=== PATIENT | male | born 1940 | race Caucasian/White ===

== ENCOUNTER 2017-06-07 01:24 | Inpatient (IN) | payer MEDICARE, OTHER ==
[2017-06-07] MEDS ORDERED: Sodium Chloride 0.9% 10 ML Syringe FLUSH PRN (01:44)
[2017-06-07] MEDS ORDERED: Furosemide 40 MG/4 ML VIAL IVPUSH ONE ×2 (01:44→10:00)
--- NOTE | 2017-06-07 02:26 | EDM.PDOC ---
ED HPI GENERAL MEDICAL PROBLEM - General Chief Complaint: Lower Extremity Injury/Pain Stated Complaint: [facility] Time Seen by Provider: 06/07/17 01:32 Source of Information: Reports: Patient, EMS, RN Notes Reviewed - History of Present Illness INITIAL COMMENTS - FREE TEXT/NARRATIVE: 76-year-old male has been brought by ambulance due to symptoms of worsening bilateral leg swelling and edema, unable to get out of the chair and walk for short time ago. He states that his legs have been swelling progressively over the last several weeks and especially the last several days. He states he has gained about 30 pounds of weight over the past 6 months. He has had worsening difficulty walking the past several days and now early this morning unable to get up out of a chair. Dates his right knee does give him a lot of pain. He states he has degenerative arthritis of the knee. He does have history of left knee replacement many years ago. No recent fall or injury. He does get short of breath with walking but otherwise not short of breath. He also became aware earlier this past day that he had swelling of his scrotum. He has had no difficulty voiding. He states he is been taking his medications as usual and as prescribed. Right Knee Pain Score (Numeric/FACES): 5 - Related Data Allergies Allergy/AdvReac Type Severity Reaction Status Date / Time No Known Allergies Allergy Verified 06/07/17 01:28 Home Meds: Home Meds Allopurinol [Zyloprim] 300 mg PO DAILY 06/07/17 [History] Apixaban [Eliquis] 2.5 mg PO BID 06/07/17 [History] Arformoterol [Brovana] 1 puff INH BID 06/07/17 [History] Diltiazem HCl [Diltiazem 24Hr ER] 240 mg PO DAILY 06/07/17 [History] Furosemide [Lasix] 40 mg PO BEDTIME 06/07/17 [History] Furosemide [Lasix] 80 mg PO DAILY 06/07/17 [History] Lisinopril 2.5 mg PO DAILY 06/07/17 [History] Roflumilast [Daliresp] 500 mcg PO DAILY 06/07/17 [History] Tiotropium [Spiriva] 18 mcg INH BID 06/07/17 [History] acetaZOLAMIDE [Acetazolamide] 500 mg PO ASDIRECTED 06/07/17 [History] atorvaSTATin Calcium [Atorvastatin Calcium] 20 mg PO DAILY 06/07/17 [History] Past Medical History HEENT History: Reports: Impaired Vision, Other (See Below) Other HEENT History: hard hearing Cardiovascular History: Reports: Afib, Heart Failure, High Cholesterol, Hypertension Respiratory History: Reports: COPD Psychiatric History: Reports: Depression Endocrine/Metabolic History: Reports: Diabetes, Type II - Past Surgical History Musculoskeletal Surgical History: Reports: Knee Replacement Social & Family History - Tobacco Use Smoking Status *Q: Former Smoker Used Tobacco, but Quit: Yes Month/Year Tobacco Last Used: 1985 Second Hand Smoke Exposure: No - Alcohol Use Days Per Week of Alcohol Use: 0 Number of Drinks Per Day: 0 Total Drinks Per Week: 0 - Recreational Drug Use Recreational Drug Use: No Drug Use in Last 12 Months: No Recreational Drug Type: Reports: Fentanyl Review of Systems - Review of Systems Review Of Systems: See Below Constitutional: Reports: Weakness. Denies: Fever Eyes: Reports: No Symptoms (Generalized) Mouth/Throat: Reports: No Symptoms Respiratory: Reports: Shortness of Breath (With walking) Cardiovascular: Denies: Chest Pain GI/Abdominal: Denies: Abdominal Pain, Nausea, Vomiting Musculoskeletal: Reports: Leg Pain (Bilateral lower leg), Joint Pain (Right knee ) Skin: Reports: Rash (Chronic distal lower legs), Erythema (Chronic erythema bilateral distal lower legs) Neurological: Reports: Difficulty Walking (Worsening difficulty walking this past week). Denies: Trouble Speaking, Change in Speech ED EXAM, GENERAL - Physical Exam Exam: See Below General Appearance: Alert, No Apparent Distress Throat/Mouth: Normal Inspection, Normal Oropharynx Head: Atraumatic Neck: Supple Respiratory/Chest: No Respiratory Distress, Lungs Clear. No: Rales, Rhonchi, Wheezing Cardiovascular: Systolic Murmur, Irregularly Irregular GI/Abdominal: Non-Tender, Other (Obese) (Male) Exam: Scrotal Swelling (Scrotal markedly swollen, nontender) Extremities: Pedal Edema, Leg Pain (Severe bilateral there is tenderness of his legs anteriorly and posteriorly bilateral), Redness (There is some erythema of distal legs bilateral and also other discoloration compatible with stasis dermatitis), Other (He does have some tenderness of the medial and lower anterior right knee, knee not warm or erythematous) Skin Exam: Warm, Dry EKG INTERPRETATION EKG Date: 06/07/17 Rhythm: A-Fib [place]: Normal P-Wave: Absent QRS: Other (very mild conduction delay) ST-T: Normal Course - Vital Signs Last Recorded V/S: Last Vital Signs Temp 97.6 F 06/07/17 01:25 Pulse 87 06/07/17 01:25 Resp 17 06/07/17 01:25 BP 130/56 L 06/07/17 01:25 Pulse Ox 95 06/07/17 01:25 - Orders/Labs/Meds Orders: Active Orders 24 hr Category Date Time Status Admission Status [Patient Status] [ADT] Routine ADT 06/07/17 03:22 Active EKG 12 Lead [EKG Documentation Completion] [RC] STAT Care 06/07/17 01:44 Active Valdovinos Catheter Insertion [Insert Urinary Catheter] [OM. Care 06/07/17 03:15 Ordered PC] Q24H Peripheral IV Care [RC] . DIRECTED Care 06/07/17 01:45 Active Urinary Catheter Assessment [RC] ASDIRECTED Care 06/07/17 03:13 Active Chest 1V Frontal [CR] Stat Exams 06/07/17 01:55 Taken Sodium Chloride 0.9% [Saline Flush] Med 06/07/17 01:44 Active 10 ml FLUSH ASDIRECTED PRN Peripheral IV Insertion Adult [OM.PC] Stat Oth 06/07/17 01:44 Ordered Medication Orders Sodium Chloride (Saline Flush) 10 ml FLUSH ASDIRECTED PRN PRN Reason: Keep Vein Open Last Admin: 06/07/17 01:52 Dose: 10 ml Labs: Laboratory Tests 06/07/17 06/07/17 Range/Units 01:50 01:50 WBC 7.32 (4.23-9.07) K/mm3 RBC 3.71 L (4.63-6.08) M/mm3 Hgb 11.4 L (13.7-17.5) gm/L Hct 36.0 L (40.1-51.0) % MCV 97.0 H (79.0-92.2) fl MCH 30.7 (25.7-32.2) pg MCHC 31.7 L (32.2-35.5) g/dl RDW Std Deviation 54.5 H (35.1-43.9) fL Plt Count 218 (163-337) K/mm3 MPV 9.0 L (9.4-12.3) fl Neut % (Auto) 86.9 H (34.0-67.9) % Lymph % (Auto) 7.2 L (21.8-53.1) % [place] % (Auto) 5.2 L (5.3-12.2) % Eos % (Auto) 0.5 L (0.8-7.0) Baso % (Auto) 0.1 (0.1-1.2) % Neut # (Auto) 6.35 H (1.78-5.38) K/mm3 Lymph # (Auto) 0.53 L (1.32-3.57) K/mm3 [place] # (Auto) 0.38 (0.30-0.82) K/mm3 Eos # (Auto) 0.04 (0.04-0.54) K/mm3 Baso # (Auto) 0.01 (0.01-0.08) K/mm3 Manual Slide Review Abnormal smear Sodium 141 (136-145) mEq/L Potassium 4.4 (3.5-5.1) mEq/L Chloride 106 (98-107) mEq/L Carbon Dioxide 23 (21-32) mEq/L Anion Gap 16.4 H (5-15) BUN 83 H (7-18) mg/dL Creatinine 2.1 H (0.7-1.3) mg/dL Est Cr Clr Drug Dosing 30.90 mL/min Estimated GFR (MDRD) 31 (>60) mL/min BUN/Creatinine Ratio 39.5 H (14-18) Glucose 109 (83-115) mg/dL Calcium 9.0 (8.5-10.1) mg/dL Total Bilirubin 0.3 (0.2-1.0) mg/dL AST 17 (15-37) U/L ALT 29 (16-63) U/L Alkaline Phosphatase 127 H (46-116) U/L Troponin I < 0.017 (0.00-0.056) ng/mL Total Protein 6.9 (6.4-8.2) g/dl Albumin 3.7 (3.4-5.0) g/dl Globulin 3.2 gm/dL Albumin/Globulin Ratio 1.2 (1-2) Meds: Medications Generic Name Dose Route Start Last Admin Trade Name Freq PRN Reason Stop Dose Admin Sodium Chloride 10 ml 06/07/17 01:44 06/07/17 01:52 Saline Flush FLUSH 10 ml ASDIRECTED PRN Administration Keep Vein Open Discontinued Medications Generic Name Dose Route Start Last Admin Trade Name Nader PRN Reason Stop Dose Admin Furosemide 80 mg 06/07/17 01:44 06/07/17 01:51 Lasix IVPUSH 06/07/17 01:45 80 mg NOW ONE Administration Hydromorphone HCl 0.5 mg 06/07/17 03:25 06/07/17 03:29 Dilaudid IVPUSH 06/07/17 03:26 0.5 mg ONETIME ONE Administration - Re-Assessments/Exams Free Text/Narrative Re-Assessment/Exam: 06/07/17 03:15. We did give lasix 80 mg IV on arrival just over an hour ago. He is having some difficuty voiding. Too weak to safely stand. Bladder scan now shows about 1 liter of urine in his bladder. Will have RN place a valdovinos cath. Will also help to moniter urine output. He states he has gained 30 lbs over the past 6 to 9 months. Suspect most of that is fluid. He cannot go home. Have admitted for further eval and treatment. Departure - Departure Time of Disposition: 03:10 Disposition: Admitted As Inpatient 66 Condition: Serious Clinical Impression: Difficulty walking Congestive heart failure (CHF) Qualifiers: Heart failure type: right-sided Heart failure chronicity: acute on chronic Qualified Code(s): I50.813 - Acute on chronic right heart failure Atrial fibrillation Qualifiers: Atrial fibrillation type: chronic Qualified Code(s): I48.2 - Chronic atrial fibrillation Osteoarthritis of right knee Qualifiers: Osteoarthritis type: unspecified Qualified Code(s): M17.11 - Unilateral primary osteoarthritis, right knee - Discharge Information ED Communication - Discussed Case With (1) Discussed Case With (1): Admitting Provider (Dr Mcbride, decision to admit at about 0310) - My Orders Last 24 Hours: My Active Orders 06/07/17 01:44 EKG 12 Lead [EKG Documentation Completion] [RC] STAT Sodium Chloride 0.9% [Saline Flush] 10 ml FLUSH ASDIRECTED PRN Peripheral IV Insertion Adult [OM.PC] Stat 06/07/17 01:45 Peripheral IV Care [RC] . DIRECTED 06/07/17 01:55 Chest 1V Frontal [CR] Stat 06/07/17 03:13 Urinary Catheter Assessment [RC] ASDIRECTED 06/07/17 03:15 Valdovinos Catheter Insertion [Insert Urinary Catheter] [OM.PC] Q24H 06/07/17 03:22 Admission Status [Patient Status] [ADT] Routine - Assessment/Plan Last 24 Hours: My Active Orders 06/07/17 01:44 EKG 12 Lead [EKG Documentation Completion] [RC] STAT Sodium Chloride 0.9% [Saline Flush] 10 ml FLUSH ASDIRECTED PRN Peripheral IV Insertion Adult [OM.PC] Stat 06/07/17 01:45 Peripheral IV Care [RC] . DIRECTED 06/07/17 01:55 Chest 1V Frontal [CR] Stat 06/07/17 03:13 Urinary Catheter Assessment [RC] ASDIRECTED 06/07/17 03:15 Valdovinos Catheter Insertion [Insert Urinary Catheter] [OM.PC] Q24H 06/07/17 03:22 Admission Status [Patient Status] [ADT] Routine
[2017-06-07] MEDS ORDERED: HYDROmorphone 0.5 MG/0.5 ML SYRINGE IVPUSH ONE (03:25)
--- NOTE | 2017-06-07 07:08 | CR ---
Chest: Portable view of the chest was obtained. Comparison: Prior chest x-ray of 08/10/11. Heart size appears within normal limits for portable technique. Mild tortuosity of the thoracic aorta is seen. Lung markings are increased believed to represent accentuation from technique. I do not believe any acute pulmonary densities are present. Bony structures are grossly intact. Impression: 1. Findings as noted above. Nothing acute is suspected on portable chest x-ray. Diagnostic code #2
--- NOTE | 2017-06-07 09:44 | PCM.HP ---
H&P History of Present Illness - General Date of Service: 06/07/17 Admit Problem/Dx: Admission Diagnosis/Problem Admission Diagnosis/Problem Edema Source of Information: Patient, Provider History Limitations: Reports: No Limitations - History of Present Illness Initial Comments - Free Text/Narative: 76 year old male who resides at home, reports progressive SOB. It had been occurring with activity but recently over 2-3 days has happened at rest. He reports a 30 # weight gain over 5-6 months. The patient admits to profound leg edema which has associated scrotal swell. The scrotal swelling has recently happened over several days. He denies any chest pain, orthopnea, PND, syncopal , presyncopal episodes. There has been no recent illness or change in medication. He has had not episodes of palpitations or lightheadedness. Onset of Symptoms: Reports: Gradual Symptom Onset Date: 06/05/17 Duration of Symptoms: Reports: Week(s):, Getting Worse Location: Reports: Generalized Severity: Moderate Improves with: Reports: Medication Worsens with: Reports: Movement Associated Symptoms: Reports: Weakness Right Knee Pain Score (Numeric/FACES): 2 Left leg Pain Score (Numeric/FACES): 6 - Related Data Allergies/Adverse Reactions: Allergies Allergy/AdvReac Type Severity Reaction Status Date / Time No Known Allergies Allergy Verified 06/07/17 01:28 Home Medications: Home Meds Allopurinol [Zyloprim] 300 mg PO DAILY 06/07/17 [History] Apixaban [Eliquis] 2.5 mg PO BID 06/07/17 [History] Arformoterol [Brovana] 1 puff NEB BID 06/07/17 [History] Diltiazem HCl [Diltiazem 24Hr ER] 240 mg PO DAILY 06/07/17 [History] Furosemide [Lasix] 40 mg PO BEDTIME 06/07/17 [History] Furosemide [Lasix] 80 mg PO DAILY 06/07/17 [History] Lisinopril 2.5 mg PO DAILY 06/07/17 [History] Roflumilast [Daliresp] 500 mcg PO DAILY 06/07/17 [History] Tiotropium [Spiriva] 18 mcg INH BID 06/07/17 [History] acetaZOLAMIDE [Acetazolamide] 500 mg PO ASDIRECTED 06/07/17 [History] atorvaSTATin Calcium [Atorvastatin Calcium] 20 mg PO DAILY 06/07/17 [History] Insulin Glargine,Hum.Rec.Anlog [Lantus Solostar] 6 unit SQ DAILY 06/08/17 [ History] Nitroglycerin [Nitrostat] 0.4 mg SL PRN 06/08/17 [History] Pramipexole Di-HCl [Mirapex] 0.125 mg PO 2000 06/08/17 [History] Past Medical History HEENT History: Reports: Impaired Vision, Other (See Below) Other HEENT History: hard hearing Cardiovascular History: Reports: Afib, Heart Failure, High Cholesterol, Hypertension Respiratory History: Reports: COPD, Sleep Apnea Gastrointestinal History: Reports: None Genitourinary History: Reports: None Musculoskeletal History: Reports: Arthritis, Gout Psychiatric History: Reports: Depression Endocrine/Metabolic History: Reports: Diabetes, Type II, Obesity/BMI 30+ Hematologic History: Reports: None Oncologic (Cancer) History: Reports: None Dermatologic History: Reports: None - Infectious Disease History Infectious Disease History: Reports: Measles, Mumps - Past Surgical History HEENT Surgical History: Reports: Cataract Surgery Respiratory Surgical History: Reports: None GI Surgical History: Reports: Colonoscopy Male Surgical History: Reports: Other (See Below) Other Male Surgeries/Procedures: one testicle removed Endocrine Surgical History: Reports: None Musculoskeletal Surgical History: Reports: Knee Replacement Social & Family History - Family History Family Medical History: Noncontributory - Tobacco Use Smoking Status *Q: Former Smoker Years of Tobacco use: 40 Packs/Tins Daily: 3 Used Tobacco, but Quit: Yes Month/Year Tobacco Last Used: quit in 1985 Second Hand Smoke Exposure: No - Caffeine Use Caffeine Use: Reports: None - Alcohol Use Days Per Week of Alcohol Use: 0 Number of Drinks Per Day: 0 Total Drinks Per Week: 0 - Recreational Drug Use Recreational Drug Use: No Drug Use in Last 12 Months: No Recreational Drug Type: Reports: Fentanyl H&P Review of Systems - Review of Systems: Review Of Systems: See Below General: Reports: Weakness, Fatigue HEENT: Reports: No Symptoms Pulmonary: Reports: Shortness of Breath Cardiovascular: Reports: Dyspnea on Exertion Gastrointestinal: Reports: No Symptoms Genitourinary: Reports: No Symptoms Musculoskeletal: Reports: No Symptoms Skin: Reports: No Symptoms Psychiatric: Reports: No Symptoms Neurological: Reports: No Symptoms Hematologic/Lymphatic: Reports: No Symptoms Immunologic: Reports: No Symptoms Exam - Exam Exam: See Below - Vital Signs Vital Signs: Last Vital Signs Temp 36.7 C 06/07/17 08:26 Pulse 79 06/07/17 07:39 Resp 20 06/07/17 07:39 BP 104/54 L 06/07/17 07:39 Pulse Ox 94 L 06/07/17 07:39 Weight: 131.088 kg - Exam Quality Assessment: Supplemental Oxygen, Urinary Catheter, DVT Prophylaxis General: Alert, Oriented, Cooperative HEENT: Conjunctiva Clear, Nares Patent, Normal Nasal Septum, Pupils Equal, Pupils Reactive, PERRLA Neck: Trachea Midline Lungs: Normal Respiratory Effort, Decreased Breath Sounds Cardiovascular: Regular Rate, Irregular Rhythm GI/Abdominal Exam: Normal Bowel Sounds, Soft, Non-Tender, No Organomegaly, No Distention (Male) Exam: Deferred Rectal (Males) Exam: Deferred Back Exam: Normal Inspection, Other (sacral edema) Extremities: Non-Tender, Pedal Edema, Other (hairless, thickened, erythema) Skin: Warm Neurological: Cranial Nerves Intact, Normal Speech Neuro Extensive - Mental Status: Alert, Oriented x3, Normal Mood/Affect, Normal Cognition, Memory Intact Neuro Extensive - Motor, Sensory, Reflexes: CN II-XII Intact DTR: 4+: [place] (R) Psychiatric: Alert, Normal Affect - Patient Data Lab Results Last 24 hrs: Laboratory Results - last 24 hr 06/07/17 06/07/17 06/07/17 Range/Units 01:50 01:50 06:07 WBC 7.32 (4.23-9.07) K/mm3 RBC 3.71 L (4.63-6.08) M/mm3 Hgb 11.4 L (13.7-17.5) gm/L Hct 36.0 L (40.1-51.0) % MCV 97.0 H (79.0-92.2) fl MCH 30.7 (25.7-32.2) pg MCHC 31.7 L (32.2-35.5) g/dl RDW Std Deviation 54.5 H (35.1-43.9) fL Plt Count 218 (163-337) K/mm3 MPV 9.0 L (9.4-12.3) fl Neut % (Auto) 86.9 H (34.0-67.9) % Lymph % (Auto) 7.2 L (21.8-53.1) % [place] % (Auto) 5.2 L (5.3-12.2) % Eos % (Auto) 0.5 L (0.8-7.0) Baso % (Auto) 0.1 (0.1-1.2) % Neut # (Auto) 6.35 H (1.78-5.38) K/mm3 Lymph # (Auto) 0.53 L (1.32-3.57) K/mm3 [place] # (Auto) 0.38 (0.30-0.82) K/mm3 Eos # (Auto) 0.04 (0.04-0.54) K/mm3 Baso # (Auto) 0.01 (0.01-0.08) K/mm3 Manual Slide Review Abnormal smear Sodium 141 (136-145) mEq/L Potassium 4.4 (3.5-5.1) mEq/L Chloride 106 (98-107) mEq/L Carbon Dioxide 23 (21-32) mEq/L Anion Gap 16.4 H (5-15) BUN 83 H (7-18) mg/dL Creatinine 2.1 H (0.7-1.3) mg/dL Est Cr Clr Drug Dosing 30.90 mL/min Estimated GFR (MDRD) 31 (>60) mL/min BUN/Creatinine Ratio 39.5 H (14-18) Glucose 109 (83-115) mg/dL POC Glucose (83-110) mg/dL Calcium 9.0 (8.5-10.1) mg/dL Magnesium (1.8-2.4) mg/dl Total Bilirubin 0.3 (0.2-1.0) mg/dL AST 17 (15-37) U/L ALT 29 (16-63) U/L Alkaline Phosphatase 127 H (46-116) U/L Troponin I < 0.017 (0.00-0.056) ng/mL Total Protein 6.9 (6.4-8.2) g/dl Albumin 3.7 (3.4-5.0) g/dl Globulin 3.2 gm/dL Albumin/Globulin Ratio 1.2 (1-2) Mycoplasma pneumon IgM Negative (NEGATIVE) 06/07/17 06/07/17 Range/Units 06:07 06:54 WBC (4.23-9.07) K/mm3 RBC (4.63-6.08) M/mm3 Hgb (13.7-17.5) gm/L Hct (40.1-51.0) % MCV (79.0-92.2) fl MCH (25.7-32.2) pg MCHC (32.2-35.5) g/dl RDW Std Deviation (35.1-43.9) fL Plt Count (163-337) K/mm3 MPV (9.4-12.3) fl Neut % (Auto) (34.0-67.9) % Lymph % (Auto) (21.8-53.1) % [place] % (Auto) (5.3-12.2) % Eos % (Auto) (0.8-7.0) Baso % (Auto) (0.1-1.2) % Neut # (Auto) (1.78-5.38) K/mm3 Lymph # (Auto) (1.32-3.57) K/mm3 [place] # (Auto) (0.30-0.82) K/mm3 Eos # (Auto) (0.04-0.54) K/mm3 Baso # (Auto) (0.01-0.08) K/mm3 Manual Slide Review Sodium (136-145) mEq/L Potassium (3.5-5.1) mEq/L Chloride (98-107) mEq/L Carbon Dioxide (21-32) mEq/L Anion Gap (5-15) BUN (7-18) mg/dL Creatinine (0.7-1.3) mg/dL Est Cr Clr Drug Dosing mL/min Estimated GFR (MDRD) (>60) mL/min BUN/Creatinine Ratio (14-18) Glucose (83-115) mg/dL POC Glucose 95 (83-110) mg/dL Calcium (8.5-10.1) mg/dL Magnesium 2.3 (1.8-2.4) mg/dl Total Bilirubin (0.2-1.0) mg/dL AST (15-37) U/L ALT (16-63) U/L Alkaline Phosphatase (46-116) U/L Troponin I 0.022 (0.00-0.056) ng/mL Total Protein (6.4-8.2) g/dl Albumin (3.4-5.0) g/dl Globulin gm/dL Albumin/Globulin Ratio (1-2) Mycoplasma pneumon IgM (NEGATIVE) Result Diagrams: 06/08/17 04:39 06/08/17 04:39 [place]an Results Last 24 hrs: Microbiology 06/07/17 04:43 Influenza Type A Antigen Screen - Final Nasal Aspirate, Unspecified NEGATIVE INFLUENZA A VIRUS AG Influenza Type B Antigen Screen - Final NEGATIVE INFLUENZA B VIRUS AG - Problem List (1) Obesity (BMI 30-39.9) SNOMED Code(s): 030980409, 159699210 ICD Code: E66.9 - OBESITY, UNSPECIFIED Status: Acute Current Visit: Yes (2) Atrial fibrillation SNOMED Code(s): 65942263 ICD Code: I48.91 - UNSPECIFIED ATRIAL FIBRILLATION Status: Acute Current Visit: Yes Qualifiers: Atrial fibrillation type: chronic Qualified Code(s): I48.2 - Chronic atrial fibrillation (3) Congestive heart failure (CHF) SNOMED Code(s): 10474131 ICD Code: I50.9 - HEART FAILURE, UNSPECIFIED Status: Acute Current Visit : Yes Qualifiers: Heart failure type: right-sided Heart failure chronicity: acute on chronic Qualified Code(s): I50.813 - Acute on chronic right heart failure (4) Difficulty walking SNOMED Code(s): 629849830 ICD Code: R26.2 - DIFFICULTY IN WALKING, NOT ELSEWHERE CLASSIFIED Status: Acute Current Visit: Yes (5) Osteoarthritis of right knee SNOMED Code(s): 986130134344815 ICD Code: M17.11 - UNILATERAL PRIMARY OSTEOARTHRITIS, RIGHT KNEE Status: Acute Current Visit: Yes Qualifiers: Osteoarthritis type: unspecified Qualified Code(s): M17.11 - Unilateral primary osteoarthritis, right knee Problem List Initiated/Reviewed/Updated: Yes Orders Last 24hrs: Active Orders 24 hr Category Date Time Status Admission Status [Patient Status] [ADT] Routine ADT 06/07/17 03:22 Active Activity as Tolerated [RC] .Routine Care 06/07/17 05:09 Active Blood Glucose Check, Bedside [RC] QIDACANDBED Care 06/07/17 04:53 Active CPAP Adult [RT BiPAP/CPAP] [RC] ASDIRECTED Care 06/07/17 04:54 Active [place]orthy Catheter Insertion [Insert Urinary Catheter] [OM. Care 06/07/17 03:15 Ordered PC] Q24H Oxygen Therapy [RC] ASDIRECTED Care 06/07/17 04:52 Active Urinary Catheter Assessment [RC] 10,16,22,04 Care 06/07/17 03:13 Active Consult to Occupational Therapy [OT Evaluation and Cons 06/07/17 04:50 Active Treatment] [CONS] Routine Consult to Physical Therapy [PT Evaluation and Cons 06/07/17 04:49 Active Treatment] [CONS] Routine Heart Healthy Diet [DIET] Diet 06/07/17 Breakfast Active INFLUENZA A+B AG SCREEN [RM] Routine Lab 06/07/17 04:43 Ordered MYCOPLASMA PNEUMONIAE IGM AB [CHEM] Routine Lab 06/07/17 06:07 Ordered Furosemide [Lasix] Med 06/07/17 10:00 Once 80 mg IVPUSH NOW ONE Sodium Chloride 0.9% [Saline Flush] Med 06/07/17 01:44 Active 10 ml FLUSH ASDIRECTED PRN Peripheral IV Insertion Adult [OM.PC] Stat Oth 06/07/17 01:44 Ordered Resuscitation Status Routine Resus Stat 06/07/17 04:35 Ordered Medication Orders Furosemide (Lasix) 80 mg IVPUSH NOW ONE Stop: 06/07/17 10:01 Sodium Chloride (Saline Flush) 10 ml FLUSH ASDIRECTED PRN PRN Reason: Keep Vein Open Last Admin: 06/07/17 01:52 Dose: 10 ml Assessment/Plan Comment:: Impression: Acute decompensated CHF, query systolic; NYHA Functional class III CHF stage C; anasarca LVEF 2014 WNL, it was a technically difficult study; 2D echo pending today. Venous disease-->fibrotic skin changes Obesity, BMI 39.3 Diabetes mellitus type 2 Atrial Fibrillation on Eliquis, renal dose CKD, stage 4 Chronic HTN HLD COPD Former tobacco use Plan: EMR from PCP 2D echo re: LVEF, may need contrast agent to define heart borders Scrotal support Elevate LE Compression wraps Diurese with Lasix gtt Worthy Cath 48 hours Ischemic and Infectious evaluation Home meds Daily labs ADA/heart healthy diet CHF education Consult SW/PT/OT
[2017-06-07] MEDS ORDERED: Metoprolol Tartrate 5 MG/5 ML SDV IVPUSH PRN (14:02)
[2017-06-07] MEDS: Diltiazem 240 MG Cap.ER PO SCH (14:04)
--- NOTE | 2017-06-07 15:02 | US ---
Bilateral lower extremity deep venous ultrasound: Duplex and color flow imaging was obtained of the right and left common femoral, proximal greater saphenous, superficial femoral, popliteal, posterior tibial and peroneal veins. Technologist's note: Suboptimal exam due to patient body habitus and inability to hold legs still. Superficial femoral, posterior tibial and peroneal veins were not seen well enough to show compression on both sides. These veins show normal phasic flow and augmentation. Other veins show normal compression, augmentation and phasic flow. Impression: 1. Suboptimal study as noted above. Nothing is seen to indicate definite deep venous thrombosis within either the right or left lower extremities. Diagnostic code #2
[2017-06-07] MEDS: Furosemide 100 MG in Sodium Chloride 0.9% 90 ML IV SCH (15:53)
[2017-06-07] MEDS ORDERED: Albuterol/Ipratropium 3.0-0.5 MG/3 ML Neb Soln NEB PRN (19:44)
[2017-06-07] MEDS: Apixaban 5 MG Tab PO SCH (20:27)
[2017-06-07] MEDS: Acetaminophen 325 MG Tab PO PRN (20:38)
[2017-06-07] MEDS ORDERED: ARFORMOTEROL INH SCH (21:00)
[2017-06-08] MEDS: ARFORMOTEROL INH SCH ×2 (08:48→20:17)
[2017-06-08] MEDS: Tiotropium Inhaler 18 MCG Inhalation Powder Cap Kit of 5 INH SCH (08:49)
[2017-06-08] MEDS ORDERED: Insulin Detemir 100 Units/ML 3 ML Pen SUBCUT SCH ×4 (09:00→11:30)
[2017-06-08] MEDS: Diltiazem 240 MG Cap.ER PO SCH (11:10)
[2017-06-08] MEDS: Apixaban 5 MG Tab PO SCH ×2 (11:10→20:16)
[2017-06-08] MEDS: Cyclobenzaprine 10 MG Tab PO PRN ×3 (11:16→20:22)
[2017-06-08] MEDS: Allopurinol 300 MG Tab PO SCH (11:17)
[2017-06-08] MEDS: ATORVASTATIN CALCIUM 20 MG PO SCH (11:19)
[2017-06-08] MEDS: Insulin Detemir 100 Units/ML 3 ML Pen SUBCUT SCH (11:42)
--- NOTE | 2017-06-08 11:59 | PCM.PN ---
- General Info Date of Service: 06/08/17 Functional Status: Reports: Tolerating Diet, Urinating - Review of Systems General: Reports: Weakness, Fatigue HEENT: Reports: No Symptoms Pulmonary: Reports: Shortness of Breath Cardiovascular: Reports: No Symptoms Gastrointestinal: Reports: No Symptoms Genitourinary: Reports: No Symptoms Musculoskeletal: Reports: No Symptoms Skin: Reports: No Symptoms Neurological: Reports: No Symptoms Psychiatric: Reports: No Symptoms - Patient Data Vitals - Most Recent: Last Vital Signs Temp 37.3 C 06/08/17 07:27 Pulse 79 06/08/17 07:27 Resp 16 06/08/17 07:27 BP 105/74 06/08/17 07:27 Pulse Ox 94 L 06/08/17 07:27 Weight - Most Recent: 124.284 kg I&O - Last 24 Hours: Intake & Output 06/07/17 06/08/17 06/08/17 22:59 06:59 14:59 Intake Total 980 248 360 Output Total 1900 2200 250 Balance -920 -1952 110 Lab Results Last 24 Hours: Laboratory Results - last 24 hr 06/07/17 06/07/17 06/07/17 Range/Units 16:02 17:18 21:17 WBC (4.23-9.07) K/mm3 RBC (4.63-6.08) M/mm3 Hgb (13.7-17.5) gm/L Hct (40.1-51.0) % MCV (79.0-92.2) fl MCH (25.7-32.2) pg MCHC (32.2-35.5) g/dl RDW Std Deviation (35.1-43.9) fL Plt Count (163-337) K/mm3 MPV (9.4-12.3) fl Neut % (Auto) (34.0-67.9) % Lymph % (Auto) (21.8-53.1) % [place] % (Auto) (5.3-12.2) % Eos % (Auto) (0.8-7.0) Baso % (Auto) (0.1-1.2) % Neut # (Auto) (1.78-5.38) K/mm3 Lymph # (Auto) (1.32-3.57) K/mm3 [place] # (Auto) (0.30-0.82) K/mm3 Eos # (Auto) (0.04-0.54) K/mm3 Baso # (Auto) (0.01-0.08) K/mm3 Sodium (136-145) mEq/L Potassium (3.5-5.1) mEq/L Chloride (98-107) mEq/L Carbon Dioxide (21-32) mEq/L Anion Gap (5-15) BUN (7-18) mg/dL Creatinine (0.7-1.3) mg/dL Est Cr Clr Drug Dosing mL/min Estimated GFR (MDRD) (>60) mL/min BUN/Creatinine Ratio (14-18) Glucose (83-115) mg/dL POC Glucose 107 162 H (83-110) mg/dL Calcium (8.5-10.1) mg/dL Magnesium (1.8-2.4) mg/dl Troponin I 0.032 (0.00-0.056) ng/mL C-Reactive Protein (<1.0) mg/dL NT-Pro-B Natriuret Pep (0-450) pg/mL 06/08/17 06/08/17 06/08/17 Range/Units 04:39 04:39 04:39 WBC 5.46 (4.23-9.07) K/mm3 RBC 3.45 L (4.63-6.08) M/mm3 Hgb 10.5 L (13.7-17.5) gm/L Hct 33.9 L (40.1-51.0) % MCV 98.3 H (79.0-92.2) fl MCH 30.4 (25.7-32.2) pg MCHC 31.0 L (32.2-35.5) g/dl RDW Std Deviation 55.3 H (35.1-43.9) fL Plt Count 196 (163-337) K/mm3 MPV 9.7 (9.4-12.3) fl Neut % (Auto) 74.2 H (34.0-67.9) % Lymph % (Auto) 18.3 L (21.8-53.1) % [place] % (Auto) 5.5 (5.3-12.2) % Eos % (Auto) 1.8 (0.8-7.0) Baso % (Auto) 0.2 (0.1-1.2) % Neut # (Auto) 4.05 (1.78-5.38) K/mm3 Lymph # (Auto) 1.00 L (1.32-3.57) K/mm3 [place] # (Auto) 0.30 (0.30-0.82) K/mm3 Eos # (Auto) 0.10 (0.04-0.54) K/mm3 Baso # (Auto) 0.01 (0.01-0.08) K/mm3 Sodium 142 (136-145) mEq/L Potassium 4.3 (3.5-5.1) mEq/L Chloride 110 H (98-107) mEq/L Carbon Dioxide 26 (21-32) mEq/L Anion Gap 10.3 (5-15) BUN 74 H (7-18) mg/dL Creatinine 1.7 H (0.7-1.3) mg/dL Est Cr Clr Drug Dosing 38.17 mL/min Estimated GFR (MDRD) 39 (>60) mL/min BUN/Creatinine Ratio 43.5 H (14-18) Glucose 94 (83-115) mg/dL POC Glucose (83-110) mg/dL Calcium 8.6 (8.5-10.1) mg/dL Magnesium 2.2 (1.8-2.4) mg/dl Troponin I 0.046 (0.00-0.056) ng/mL C-Reactive Protein 2.7 H* (<1.0) mg/dL NT-Pro-B Natriuret Pep 3903 H (0-450) pg/mL 06/08/17 06/08/17 Range/Units 06:27 11:15 WBC (4.23-9.07) K/mm3 RBC (4.63-6.08) M/mm3 Hgb (13.7-17.5) gm/L Hct (40.1-51.0) % MCV (79.0-92.2) fl MCH (25.7-32.2) pg MCHC (32.2-35.5) g/dl RDW Std Deviation (35.1-43.9) fL Plt Count (163-337) K/mm3 MPV (9.4-12.3) fl Neut % (Auto) (34.0-67.9) % Lymph % (Auto) (21.8-53.1) % [place] % (Auto) (5.3-12.2) % Eos % (Auto) (0.8-7.0) Baso % (Auto) (0.1-1.2) % Neut # (Auto) (1.78-5.38) K/mm3 Lymph # (Auto) (1.32-3.57) K/mm3 [place] # (Auto) (0.30-0.82) K/mm3 Eos # (Auto) (0.04-0.54) K/mm3 Baso # (Auto) (0.01-0.08) K/mm3 Sodium (136-145) mEq/L Potassium (3.5-5.1) mEq/L Chloride (98-107) mEq/L Carbon Dioxide (21-32) mEq/L Anion Gap (5-15) BUN (7-18) mg/dL Creatinine (0.7-1.3) mg/dL Est Cr Clr Drug Dosing mL/min Estimated GFR (MDRD) (>60) mL/min BUN/Creatinine Ratio (14-18) Glucose (83-115) mg/dL POC Glucose 92 162 H (83-110) mg/dL Calcium (8.5-10.1) mg/dL Magnesium (1.8-2.4) mg/dl Troponin I (0.00-0.056) ng/mL C-Reactive Protein (<1.0) mg/dL NT-Pro-B Natriuret Pep (0-450) pg/mL Med Orders - Current: Current Medications Acetaminophen (Tylenol) 650 mg PO Q6H PRN PRN Reason: Pain Last Admin: 06/07/17 20:38 Dose: 650 mg Albuterol/Ipratropium (Duoneb 3.0-0.5 Mg/3 Ml) 3 ml NEB QID PRN PRN Reason: Shortness of Breath Allopurinol (Zyloprim) 300 mg PO DAILY [facility] Last Admin: 06/08/17 11:17 Dose: 300 mg Apixaban (Eliquis) 2.5 mg PO BID [facility] Last Admin: 06/08/17 11:10 Dose: 2.5 mg Cyclobenzaprine HCl (Flexeril) 5 - 10 mg PO TID PRN PRN Reason: Spasms Last Admin: 06/08/17 11:16 Dose: 5 mg Diltiazem HCl (Dilacor Xr) 240 mg PO DAILY [facility] Last Admin: 06/08/17 11:10 Dose: 240 mg Furosemide 100 mg/ Sodium (Chloride) 100 mls @ 4 mls/hr IV ASDIRECTED [facility]; Protocol Last Admin: 06/07/17 15:53 Dose: 4 mls/hr Insulin Detemir (Levemir) 4 unit SUBCUT DAILY [facility] Last Admin: 06/08/17 11:42 Dose: 4 units Metoprolol Tartrate (Lopressor) 5 mg IVPUSH Q6H PRN PRN Reason: HR>120 Atorvastatin Calcium (20 Mg) 0 each PO DAILY [facility] Last Admin: 06/08/17 11:19 Dose: 1 each Roflumilast 500 Mcg ((Daliresp)) 0 each PO DAILY [facility] Last Admin: 06/08/17 08:49 Dose: Not Given Brovana ( Arformoterol) Med Neb 15 Mcg 0 each INH BID [facility] Last Admin: 06/08/17 08:48 Dose: 1 each Pramipexole Dihydrochloride (Mirapex) 0.125 mg PO DAILY@1999 [facility] Sodium Chloride (Saline Flush) 10 ml FLUSH ASDIRECTED PRN PRN Reason: Keep Vein Open Last Admin: 06/07/17 01:52 Dose: 10 ml Tiotropium Phillips (Spiriva Handihaler) 18 mcg INH DAILY [facility] Last Admin: 06/08/17 08:49 Dose: 1 cap Discontinued Medications Furosemide (Lasix) 80 mg IVPUSH NOW ONE Stop: 06/07/17 01:45 Last Admin: 06/07/17 01:51 Dose: 80 mg Furosemide (Lasix) 80 mg IVPUSH NOW ONE Stop: 06/07/17 10:01 Last Admin: 06/07/17 09:46 Dose: 80 mg Hydromorphone HCl (Dilaudid) 0.5 mg IVPUSH ONETIME ONE Stop: 06/07/17 03:26 Last Admin: 06/07/17 03:29 Dose: 0.5 mg Insulin Detemir (Levemir) 4 unit SUBCUT DAILY [facility] Last Admin: 06/08/17 11:25 Dose: Not Given Insulin Detemir (Levemir) 6 unit SUBCUT DAILY [facility] Insulin Detemir (Levemir) 6 unit SUBCUT DAILY [facility] Insulin Detemir (Levemir) 4 unit SUBCUT DAILY [facility] Brovana ( Arformoterol) Med Neb 15 Mcg 0 puff INH BID [facility] Last Admin: 06/07/17 21:06 Dose: 1 puff - Exam Quality Assessment: Urine Catheter, DVT Prophylaxis General: Alert, Oriented, Cooperative, No Acute Distress HEENT: Pupils Equal, Pupils Reactive, EOMI Neck: Trachea Midline, No JVD Lungs: Normal Respiratory Effort, Decreased Breath Sounds, Crackles Cardiovascular: Regular Rate, Irregular Rhythm GI/Abdominal Exam: Normal Bowel Sounds, Soft, Non-Tender, No Organomegaly, No Distention (Male) Exam: Scrotal Swelling Back Exam: Normal Inspection Extremities: Normal Inspection, Non-Tender, Pedal Edema Skin: Warm Neurological: No New Focal Deficit Psy/Mental Status: Alert, Normal Affect, Normal Mood - Problem List Review Problem List Initiated/Reviewed/Updated: Yes - My Orders Last 24 Hours: My Active Orders 06/07/17 13:50 Consult to [facility] [CONS] Routine 06/07/17 14:00 Diltiazem [Dilacor XR] 240 mg PO DAILY Patient's Own Medication [Ptom] 0 each PO DAILY 06/07/17 14:02 Metoprolol Tartrate [Lopressor] 5 mg IVPUSH Q6H PRN 06/07/17 14:07 Elevate Extremity [RC] BID 06/07/17 14:45 Furosemide [Lasix] 100 mg Sodium Chloride 0.9% [Normal Saline] 90 ml IV ASDIRECTED 06/07/17 19:44 Albuterol/Ipratropium [DuoNeb 3.0-0.5 MG/3 ML] 3 ml NEB QID PRN 06/07/17 19:45 RT Aerosol Therapy [RC] ASDIRECTED 06/07/17 20:28 Acetaminophen [Tylenol] 650 mg PO Q6H PRN 06/07/17 21:00 Apixaban [Eliquis] 2.5 mg PO BID 06/08/17 07:53 Patient's Own Medication [Ptom] 0 each INH BID 06/08/17 09:00 Allopurinol [Zyloprim] 300 mg PO DAILY Patient's Own Medication [Ptom] 0 each PO DAILY Tiotropium [Spiriva HandiHaler] 18 mcg INH DAILY 06/09/17 05:00 BMP [BASIC METABOLIC PANEL,BMP] [CHEM] DAILY CBC WITH AUTO DIFF [HEME] DAILY CRP [C-REACTIVE PROTEIN] [CHEM] DAILY MAGNESIUM [CHEM] DAILY PRO B-TYPE NATRIUR PEPT,BNPPRO [CHEM] DAILY TROPONIN I [CHEM] DAILY 06/10/17 05:00 BMP [BASIC METABOLIC PANEL,BMP] [CHEM] DAILY CBC WITH AUTO DIFF [HEME] DAILY CRP [C-REACTIVE PROTEIN] [CHEM] DAILY MAGNESIUM [CHEM] DAILY PRO B-TYPE NATRIUR PEPT,BNPPRO [CHEM] DAILY 06/11/17 05:00 BMP [BASIC METABOLIC PANEL,BMP] [CHEM] DAILY CBC WITH AUTO DIFF [HEME] DAILY CRP [C-REACTIVE PROTEIN] [CHEM] DAILY MAGNESIUM [CHEM] DAILY PRO B-TYPE NATRIUR PEPT,BNPPRO [CHEM] DAILY - Plan Plan:: Impression: Acute decompensated CHF, query systolic; NYHA Functional class III CHF stage C; anasarca LVEF 2014 WNL, it was a technically difficult study; 2D echo pending today. Venous disease-->fibrotic skin changes Obesity, BMI 39.3 Diabetes mellitus type 2 Atrial Fibrillation on Eliquis, renal dose CKD, stage 4 Chronic HTN HLD COPD Former tobacco use Plan: EMR from PCP 2D echo re: LVEF, may need contrast agent to define heart borders Scrotal support Elevate LE Compression wraps Diurese with Lasix gtt [place] Cath 48 hours Ischemic and Infectious evaluation Home meds Daily labs ADA/heart healthy diet
[2017-06-08] MEDS ORDERED: Tamsulosin 0.4 MG Cap.ER PO ONE (14:00)
[2017-06-08] MEDS: Furosemide 100 MG in Sodium Chloride 0.9% 90 ML IV SCH (14:37)
[2017-06-08] MEDS: Pramipexole 0.25 MG Tab PO SCH (20:16)
[2017-06-08] MEDS: Acetaminophen 325 MG Tab PO PRN (20:22)
--- NOTE | 2017-06-09 06:58 | PCM.PN ---
- General Info Date of Service: 06/09/17 Admission Dx/Problem (Free Text): Admission Diagnosis/Problem Admission Diagnosis/Problem Edema Patient swelling and leg pain is much improved. He has lost 20lbs since admission. He has leg cramps every night, flexeril does help with this. VSS. No other concerns. He did ambulate TID overnight 75-90 feet per nursing reports. Functional Status: Reports: Pain Controlled, Tolerating Diet, Ambulating, Urinating (valdovinos), Incentive Spirometry - Review of Systems General: Reports: Weakness (improved). Denies: Fever HEENT: Reports: No Symptoms Pulmonary: Reports: No Symptoms. Denies: Shortness of Breath Cardiovascular: Reports: No Symptoms. Denies: Chest Pain, Dyspnea on Exertion Gastrointestinal: Reports: No Symptoms Musculoskeletal: Reports: Leg Pain (cramping- worse at night) - Patient Data Vitals - Most Recent: Last Vital Signs Temp 98.4 F 06/08/17 19:22 Pulse 86 06/08/17 19:22 Resp 16 06/08/17 19:22 BP 138/44 L 06/08/17 19:22 Pulse Ox 95 06/08/17 20:58 Weight - Most Recent: 270 lb I&O - Last 24 Hours: Intake & Output 06/08/17 06/08/17 06/09/17 14:59 22:59 06:59 Intake Total 360 1682 1049 Output Total 1400 1025 900 Balance -1040 657 149 Lab Results Last 24 Hours: Laboratory Results - last 24 hr 06/08/17 06/08/17 06/08/17 Range/Units 11:15 17:19 21:14 WBC (4.23-9.07) K/mm3 RBC (4.63-6.08) M/mm3 Hgb (13.7-17.5) gm/L Hct (40.1-51.0) % MCV (79.0-92.2) fl MCH (25.7-32.2) pg MCHC (32.2-35.5) g/dl RDW Std Deviation (35.1-43.9) fL Plt Count (163-337) K/mm3 MPV (9.4-12.3) fl Neut % (Auto) (34.0-67.9) % Lymph % (Auto) (21.8-53.1) % [place] % (Auto) (5.3-12.2) % Eos % (Auto) (0.8-7.0) Baso % (Auto) (0.1-1.2) % Neut # (Auto) (1.78-5.38) K/mm3 Lymph # (Auto) (1.32-3.57) K/mm3 [place] # (Auto) (0.30-0.82) K/mm3 Eos # (Auto) (0.04-0.54) K/mm3 Baso # (Auto) (0.01-0.08) K/mm3 POC Glucose 162 H 94 165 H (83-110) mg/dL 06/09/17 06/09/17 Range/Units 05:47 06:33 WBC 5.58 (4.23-9.07) K/mm3 RBC 3.35 L (4.63-6.08) M/mm3 Hgb 10.2 L (13.7-17.5) gm/L Hct 32.9 L (40.1-51.0) % MCV 98.2 H (79.0-92.2) fl MCH 30.4 (25.7-32.2) pg MCHC 31.0 L (32.2-35.5) g/dl RDW Std Deviation 55.6 H (35.1-43.9) fL Plt Count 195 (163-337) K/mm3 MPV 10.0 (9.4-12.3) fl Neut % (Auto) 73.5 H (34.0-67.9) % Lymph % (Auto) 17.2 L (21.8-53.1) % [place] % (Auto) 7.3 (5.3-12.2) % Eos % (Auto) 1.6 (0.8-7.0) Baso % (Auto) 0.2 (0.1-1.2) % Neut # (Auto) 4.10 (1.78-5.38) K/mm3 Lymph # (Auto) 0.96 L (1.32-3.57) K/mm3 [place] # (Auto) 0.41 (0.30-0.82) K/mm3 Eos # (Auto) 0.09 (0.04-0.54) K/mm3 Baso # (Auto) 0.01 (0.01-0.08) K/mm3 POC Glucose 94 (83-110) mg/dL [place]an Results Last 24 Hours: Microbiology 06/07/17 05:20 Streptococcus pneumoniae Antigen (M - Final Urine Med Orders - Current: Current Medications Acetaminophen (Tylenol) 650 mg PO Q6H PRN PRN Reason: Pain Last Admin: 06/08/17 20:22 Dose: 650 mg Albuterol/Ipratropium (Duoneb 3.0-0.5 Mg/3 Ml) 3 ml NEB QID PRN PRN Reason: Shortness of Breath Allopurinol (Zyloprim) 300 mg PO DAILY [facility] Last Admin: 06/08/17 11:17 Dose: 300 mg Apixaban (Eliquis) 2.5 mg PO BID [facility] Last Admin: 06/08/17 20:16 Dose: 2.5 mg Cyclobenzaprine HCl (Flexeril) 5 - 10 mg PO TID PRN PRN Reason: Spasms Last Admin: 06/08/17 20:22 Dose: 10 mg Diltiazem HCl (Dilacor Xr) 240 mg PO DAILY [facility] Last Admin: 06/08/17 11:10 Dose: 240 mg Furosemide 100 mg/ Sodium (Chloride) 100 mls @ 4 mls/hr IV ASDIRECTED [facility]; Protocol Last Admin: 06/08/17 14:37 Dose: 4 mls/hr Insulin Detemir (Levemir) 4 unit SUBCUT DAILY [facility] Last Admin: 06/08/17 11:42 Dose: 4 units Magnesium Oxide (Magnesium Oxide) 400 mg PO DAILY [facility] Metoprolol Tartrate (Lopressor) 5 mg IVPUSH Q6H PRN PRN Reason: HR>120 Atorvastatin Calcium (20 Mg) 0 each PO DAILY [facility] Last Admin: 06/08/17 11:19 Dose: 1 each Roflumilast 500 Mcg ((Daliresp)) 0 each PO DAILY [facility] Last Admin: 06/08/17 08:49 Dose: Not Given Brovana ( Arformoterol) Med Neb 15 Mcg 0 each INH BID [facility] Last Admin: 06/08/17 20:17 Dose: 1 each Pramipexole Dihydrochloride (Mirapex) 0.125 mg PO DAILY@1999 [facility] Last Admin: 06/08/17 20:16 Dose: 0.125 mg Sodium Chloride (Saline Flush) 10 ml FLUSH ASDIRECTED PRN PRN Reason: Keep Vein Open Last Admin: 06/07/17 01:52 Dose: 10 ml Tamsulosin HCl (Flomax) 0.8 mg PO PCBREAKFAST [facility] Tiotropium Monon (Spiriva Handihaler) 18 mcg INH DAILY [facility] Last Admin: 06/08/17 08:49 Dose: 1 cap Discontinued Medications Furosemide (Lasix) 80 mg IVPUSH NOW ONE Stop: 06/07/17 01:45 Last Admin: 06/07/17 01:51 Dose: 80 mg Furosemide (Lasix) 80 mg IVPUSH NOW ONE Stop: 06/07/17 10:01 Last Admin: 06/07/17 09:46 Dose: 80 mg Hydromorphone HCl (Dilaudid) 0.5 mg IVPUSH ONETIME ONE Stop: 06/07/17 03:26 Last Admin: 06/07/17 03:29 Dose: 0.5 mg Insulin Detemir (Levemir) 4 unit SUBCUT DAILY [facility] Last Admin: 06/08/17 11:25 Dose: Not Given Insulin Detemir (Levemir) 6 unit SUBCUT DAILY [facility] Insulin Detemir (Levemir) 6 unit SUBCUT DAILY [facility] Insulin Detemir (Levemir) 4 unit SUBCUT DAILY [facility] Brovana ( Arformoterol) Med Neb 15 Mcg 0 puff INH BID [facility] Last Admin: 06/07/17 21:06 Dose: 1 puff Tamsulosin HCl (Flomax) 0.4 mg PO ONETIME ONE Stop: 06/08/17 14:01 Last Admin: 06/08/17 14:37 Dose: 0.4 mg - Exam Quality Assessment: DVT Prophylaxis General: Alert, Oriented, No Acute Distress HEENT: Pupils Equal, EOMI, Mucous Membr. Moist/[place] Neck: Supple Lungs: Normal Respiratory Effort, Decreased Breath Sounds Cardiovascular: Irregular Rhythm GI/Abdominal Exam: Normal Bowel Sounds, Soft, Non-Tender, Other (round/obese) (Male) Exam: Deferred, Other (valdovinos cath draining clear yellow urine) Extremities: Other (venous insufficiency changes to bilat LE; 1-2+ edema bilat-- significantly improved) Neurological: No New Focal Deficit Psy/Mental Status: Alert, Normal Affect, Normal Mood - Problem List & Annotations (1) Congestive heart failure (CHF) SNOMED Code(s): 35911974 Code(s): I50.9 - HEART FAILURE, UNSPECIFIED Status: Acute Priority: High Current Visit: Yes Qualifiers: Heart failure type: right-sided Heart failure chronicity: acute on chronic Qualified Code(s): I50.813 - Acute on chronic right heart failure (2) Atrial fibrillation SNOMED Code(s): 12374181 Code(s): I48.91 - UNSPECIFIED ATRIAL FIBRILLATION Status: Acute Priority : High Current Visit: Yes Qualifiers: Atrial fibrillation type: chronic Qualified Code(s): I48.2 - Chronic atrial fibrillation (3) Difficulty walking SNOMED Code(s): 257795079 Code(s): R26.2 - DIFFICULTY IN WALKING, NOT ELSEWHERE CLASSIFIED Status: Chronic Priority: High Current Visit: Yes (4) Obesity (BMI 30-39.9) SNOMED Code(s): 719953016, 231004090 Code(s): E66.9 - OBESITY, UNSPECIFIED Status: Acute Priority: Medium Current Visit: Yes (5) Weakness generalized SNOMED Code(s): 59453359 Code(s): R53.1 - WEAKNESS Status: Acute Current Visit: Yes - Problem List Review Problem List Initiated/Reviewed/Updated: Yes - My Orders Last 24 Hours: My Active Orders 06/08/17 09:42 Cyclobenzaprine [Flexeril] 5 - 10 mg PO TID PRN 06/08/17 11:45 Insulin Detemir [Levemir] 4 unit SUBCUT DAILY 06/08/17 20:00 Pramipexole [Mirapex] 0.125 mg PO DAILY@199906/09/17 06:43 SCD [Sequential Compression Device] [OM.PC] Routine 06/09/17 21:00 Magnesium Oxide 400 mg PO DAILY - Plan Plan:: Impression/Plan: Acute decompensated CHF, query systolic; NYHA Functional class III -CHF stage C; anasarca -LVEF 2014 WNL, it was a technically difficult study; 2D echo pending today. 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 -likely multifactorial; vascular and DM component Obesity, BMI 39.3 -[place] [facility] consult Diabetes mellitus type 2 -Stable; home regimen -A1C -Accuchecks AC/HS with SSI coverage Atrial Fibrillation on Eliquis, renal dose -rate controlled, no calls on telemetry CKD, stage 4 -stable Chronic HTN-stable HLD COPD Former tobacco use Other: EMR from PCP 2D echo re: LVEF, may need contrast agent to define heart borders--report pending Scrotal support-- scrotal swelling has improved with diuresis Elevate LE, Compression wraps Valdovinos Cath 48 hours for strict I&O with lasix gtt Ischemic and Infectious evaluation Home meds Daily labs ADA/heart healthy diet PT/OT--he is ambulating better now CM for assist with DC planning- likely recommend SNF placement; LOS 1-3 more days pending further diuresis Patient is DNR/DNI code status PCP is Dr. Christina Sin with [facility]
[2017-06-09] MEDS ORDERED: Magnesium Hydroxide 400 MG/5 ML Susp 30 ML Cup PO PRN (08:17)
[2017-06-09] MEDS: Allopurinol 300 MG Tab PO SCH (08:18)
[2017-06-09] MEDS: Diltiazem 240 MG Cap.ER PO SCH (08:18)
[2017-06-09] MEDS: Apixaban 5 MG Tab PO SCH ×2 (08:18→20:11)
[2017-06-09] MEDS: Insulin Detemir 100 Units/ML 3 ML Pen SUBCUT SCH (08:19)
[2017-06-09] MEDS: ATORVASTATIN CALCIUM 20 MG PO SCH (08:20)
[2017-06-09] MEDS: Tamsulosin 0.4 MG Cap.ER PO SCH ×2 (08:31→09:55)
[2017-06-09] MEDS: ARFORMOTEROL INH SCH ×2 (09:15→20:38)
[2017-06-09] MEDS: Tiotropium Inhaler 18 MCG Inhalation Powder Cap Kit of 5 INH SCH (09:16)
[2017-06-09] MEDS: Furosemide 100 MG in Sodium Chloride 0.9% 90 ML IV SCH (14:00)
[2017-06-09] MEDS: Acetaminophen 325 MG Tab PO PRN ×2 (14:09→20:13)
[2017-06-09] MEDS: Cyclobenzaprine 10 MG Tab PO PRN ×2 (14:10→20:14)
[2017-06-09] MEDS: CAPSAICIN 0.025% TOP PRN (18:51)
[2017-06-09] MEDS: Pramipexole 0.25 MG Tab PO SCH (20:11)
[2017-06-09] MEDS: Magnesium Oxide 400 MG Tab PO SCH (20:12)
[2017-06-10] MEDS: Cyclobenzaprine 10 MG Tab PO PRN ×3 (00:31→21:54)
[2017-06-10] MEDS: Acetaminophen 325 MG Tab PO PRN ×3 (01:49→21:52)
[2017-06-10] MEDS: CAPSAICIN 0.025% TOP PRN (01:50)
[2017-06-10] MEDS: Apixaban 5 MG Tab PO SCH ×2 (09:28→21:50)
[2017-06-10] MEDS: Diltiazem 240 MG Cap.ER PO SCH (09:28)
[2017-06-10] MEDS: Tamsulosin 0.4 MG Cap.ER PO SCH (09:28)
[2017-06-10] MEDS: Allopurinol 300 MG Tab PO SCH (09:28)
[2017-06-10] MEDS: ATORVASTATIN CALCIUM 20 MG PO SCH (09:29)
[2017-06-10] MEDS: Insulin Detemir 100 Units/ML 3 ML Pen SUBCUT SCH (09:30)
[2017-06-10] MEDS: ARFORMOTEROL INH SCH ×2 (09:57→20:53)
[2017-06-10] MEDS: Tiotropium Inhaler 18 MCG Inhalation Powder Cap Kit of 5 INH SCH (09:58)
--- NOTE | 2017-06-10 14:47 | PCM.PN ---
- General Info Date of Service: 06/10/17 Subjective Update: Feels better, has lost >30 pounds. Lasix drip has been stopped; Worthy to be removed. DC on 06/12/17 to [facility] Functional Status: Reports: Tolerating Diet, Ambulating (minimal), Urinating - Review of Systems General: Reports: No Symptoms HEENT: Reports: No Symptoms Pulmonary: Reports: No Symptoms Cardiovascular: Reports: No Symptoms Gastrointestinal: Reports: No Symptoms Genitourinary: Reports: No Symptoms Skin: Reports: No Symptoms Neurological: Reports: No Symptoms Psychiatric: Reports: No Symptoms - Patient Data Vitals - Most Recent: Last Vital Signs Temp 36.4 C 06/10/17 07:39 Pulse 75 06/10/17 07:39 Resp 20 06/10/17 07:39 BP 118/67 06/10/17 07:39 Pulse Ox 95 06/10/17 09:59 Weight - Most Recent: 118.115 kg I&O - Last 24 Hours: Intake & Output 06/09/17 06/10/17 06/10/17 22:59 06:59 14:59 Intake Total 1208 848 120 Output Total 425 2100 1500 Balance 783 1252 1380 Lab Results Last 24 Hours: Laboratory Results - last 24 hr 06/09/17 06/09/17 06/10/17 Range/Units 16:52 20:32 05:47 WBC 5.19 (4.23-9.07) K/mm3 RBC 3.24 L (4.63-6.08) M/mm3 Hgb 10.0 L (13.7-17.5) gm/L Hct 31.9 L (40.1-51.0) % MCV 98.5 H (79.0-92.2) fl MCH 30.9 (25.7-32.2) pg MCHC 31.3 L (32.2-35.5) g/dl RDW Std Deviation 55.3 H (35.1-43.9) fL Plt Count 191 (163-337) K/mm3 MPV 9.5 (9.4-12.3) fl Neut % (Auto) 71.9 H (34.0-67.9) % Lymph % (Auto) 18.5 L (21.8-53.1) % [place] % (Auto) 6.7 (5.3-12.2) % Eos % (Auto) 2.5 (0.8-7.0) Baso % (Auto) 0.2 (0.1-1.2) % Neut # (Auto) 3.73 (1.78-5.38) K/mm3 Lymph # (Auto) 0.96 L (1.32-3.57) K/mm3 [place] # (Auto) 0.35 (0.30-0.82) K/mm3 Eos # (Auto) 0.13 (0.04-0.54) K/mm3 Baso # (Auto) 0.01 (0.01-0.08) K/mm3 Sodium (136-145) mEq/L Potassium (3.5-5.1) mEq/L Chloride (98-107) mEq/L Carbon Dioxide (21-32) mEq/L Anion Gap (5-15) BUN (7-18) mg/dL Creatinine (0.7-1.3) mg/dL Est Cr Clr Drug Dosing mL/min Estimated GFR (MDRD) (>60) mL/min BUN/Creatinine Ratio (14-18) Glucose (83-115) mg/dL POC Glucose 121 H 171 H (83-110) mg/dL Calcium (8.5-10.1) mg/dL Magnesium (1.8-2.4) mg/dl C-Reactive Protein (<1.0) mg/dL NT-Pro-B Natriuret Pep (0-450) pg/mL 06/10/17 06/10/17 06/10/17 Range/Units 05:47 05:47 10:33 WBC (4.23-9.07) K/mm3 RBC (4.63-6.08) M/mm3 Hgb (13.7-17.5) gm/L Hct (40.1-51.0) % MCV (79.0-92.2) fl MCH (25.7-32.2) pg MCHC (32.2-35.5) g/dl RDW Std Deviation (35.1-43.9) fL Plt Count (163-337) K/mm3 MPV (9.4-12.3) fl Neut % (Auto) (34.0-67.9) % Lymph % (Auto) (21.8-53.1) % [place] % (Auto) (5.3-12.2) % Eos % (Auto) (0.8-7.0) Baso % (Auto) (0.1-1.2) % Neut # (Auto) (1.78-5.38) K/mm3 Lymph # (Auto) (1.32-3.57) K/mm3 [place] # (Auto) (0.30-0.82) K/mm3 Eos # (Auto) (0.04-0.54) K/mm3 Baso # (Auto) (0.01-0.08) K/mm3 Sodium 144 (136-145) mEq/L Potassium 4.4 (3.5-5.1) mEq/L Chloride 108 H (98-107) mEq/L Carbon Dioxide 26 (21-32) mEq/L Anion Gap 14.4 (5-15) BUN 59 H (7-18) mg/dL Creatinine 1.6 H (0.7-1.3) mg/dL Est Cr Clr Drug Dosing 40.56 mL/min Estimated GFR (MDRD) 42 (>60) mL/min BUN/Creatinine Ratio 36.9 H (14-18) Glucose 98 (83-115) mg/dL POC Glucose 123 H (83-110) mg/dL Calcium 8.7 (8.5-10.1) mg/dL Magnesium 2.0 (1.8-2.4) mg/dl C-Reactive Protein 3.1 H* (<1.0) mg/dL NT-Pro-B Natriuret Pep 2316 H (0-450) pg/mL Med Orders - Current: Current Medications Acetaminophen (Tylenol) 650 mg PO Q6H PRN PRN Reason: Pain Last Admin: 06/10/17 12:54 Dose: 650 mg Albuterol/Ipratropium (Duoneb 3.0-0.5 Mg/3 Ml) 3 ml NEB QID PRN PRN Reason: Shortness of Breath Allopurinol (Zyloprim) 300 mg PO DAILY [facility] Last Admin: 06/10/17 09:28 Dose: 300 mg Apixaban (Eliquis) 2.5 mg PO BID [facility] Last Admin: 06/10/17 09:28 Dose: 2.5 mg Capsaicin (Zostrix 0.025% Crm) 0 gm TOP BID PRN PRN Reason: Pain Last Admin: 06/10/17 01:50 Dose: 1 applic Cyclobenzaprine HCl (Flexeril) 5 - 10 mg PO TID PRN PRN Reason: Spasms Last Admin: 06/10/17 12:55 Dose: 10 mg Diltiazem HCl (Dilacor Xr) 240 mg PO DAILY [facility] Last Admin: 06/10/17 09:28 Dose: 240 mg Furosemide (Lasix) 60 mg PO BIDDIURETIC [facility] Insulin Detemir (Levemir) 4 unit SUBCUT DAILY [facility] Last Admin: 06/10/17 09:30 Dose: 4 units Magnesium Hydroxide (Milk Of Magnesia) 30 ml PO BID PRN PRN Reason: Constipation Magnesium Oxide (Magnesium Oxide) 400 mg PO DAILY@2100 [facility] Last Admin: 06/09/17 20:12 Dose: 400 mg Metoprolol Tartrate (Lopressor) 5 mg IVPUSH Q6H PRN PRN Reason: HR>120 Atorvastatin Calcium (20 Mg) 0 each PO DAILY [facility] Last Admin: 06/10/17 09:29 Dose: 1 each Roflumilast 500 Mcg ((Daliresp)) 0 each PO DAILY [facility] Last Admin: 06/10/17 09:29 Dose: 1 each Brovana ( Arformoterol) Med Neb 15 Mcg 0 each INH BID [facility] Last Admin: 06/10/17 09:57 Dose: 1 each Melatonin 5 Mg (Tablet) 0 each PO BEDTIME PRN PRN Reason: Insomnia Last Admin: 06/09/17 22:38 Dose: 10 each Pramipexole Dihydrochloride (Mirapex) 0.125 mg PO DAILY@1999 [facility] Last Admin: 06/09/17 20:11 Dose: 0.125 mg Senna/Docusate Sodium (Senna Plus) 1 tab PO BID [facility] Last Admin: 06/10/17 09:28 Dose: 1 tab Sodium Chloride (Saline Flush) 10 ml FLUSH ASDIRECTED PRN PRN Reason: Keep Vein Open Last Admin: 06/07/17 01:52 Dose: 10 ml Tamsulosin HCl (Flomax) 0.8 mg PO PCBREAKFAST [facility] Last Admin: 06/10/17 09:28 Dose: 0.8 mg Tiotropium [place] (Spiriva Handihaler) 18 mcg INH DAILY [facility] Last Admin: 06/10/17 09:58 Dose: 1 cap Discontinued Medications Furosemide (Lasix) 80 mg IVPUSH NOW ONE Stop: 06/07/17 01:45 Last Admin: 06/07/17 01:51 Dose: 80 mg Furosemide (Lasix) 80 mg IVPUSH NOW ONE Stop: 06/07/17 10:01 Last Admin: 06/07/17 09:46 Dose: 80 mg Hydromorphone HCl (Dilaudid) 0.5 mg IVPUSH ONETIME ONE Stop: 06/07/17 03:26 Last Admin: 06/07/17 03:29 Dose: 0.5 mg Furosemide 100 mg/ Sodium (Chloride) 100 mls @ 4 mls/hr IV ASDIRECTED [facility]; Protocol Stop: 06/10/17 14:30 Last Admin: 06/09/17 14:00 Dose: 4 mls/hr Insulin Detemir (Levemir) 4 unit SUBCUT DAILY [facility] Last Admin: 06/08/17 11:25 Dose: Not Given Insulin Detemir (Levemir) 6 unit SUBCUT DAILY [facility] Insulin Detemir (Levemir) 6 unit SUBCUT DAILY [facility] Insulin Detemir (Levemir) 4 unit SUBCUT DAILY [facility] Brovana ( Arformoterol) Med Neb 15 Mcg 0 puff INH BID [facility] Last Admin: 06/07/17 21:06 Dose: 1 puff Tamsulosin HCl (Flomax) 0.4 mg PO ONETIME ONE Stop: 06/08/17 14:01 Last Admin: 06/08/17 14:37 Dose: 0.4 mg - Exam Quality Assessment: Urine Catheter, DVT Prophylaxis General: Alert, Oriented, Cooperative, No Acute Distress HEENT: Pupils Equal, Pupils Reactive, EOMI Neck: Trachea Midline, No JVD Lungs: Normal Respiratory Effort Cardiovascular: Regular Rate, Regular Rhythm GI/Abdominal Exam: Normal Bowel Sounds, Non-Tender, No Organomegaly, No Distention (Male) Exam: Scrotal Swelling (decreased) Back Exam: Normal Inspection Extremities: Normal Inspection, Non-Tender, Pedal Edema (trace) Skin: Warm Neurological: No New Focal Deficit Psy/Mental Status: Alert, Normal Affect, Normal Mood - Problem List Review Problem List Initiated/Reviewed/Updated: Yes - My Orders Last 24 Hours: My Active Orders 06/10/17 13:30 DC Worthy Catheter [Urinary Catheter Removal] [RC] Per Unit Routine 06/10/17 18:00 Furosemide [Lasix] 60 mg PO BIDDIURETIC 06/11/17 05:00 BMP [BASIC METABOLIC PANEL,BMP] [CHEM] DAILY CBC WITH AUTO DIFF [HEME] DAILY CRP [C-REACTIVE PROTEIN] [CHEM] DAILY MAGNESIUM [CHEM] DAILY PRO B-TYPE NATRIUR PEPT,BNPPRO [CHEM] DAILY - Plan Plan:: Impression/Plan: Acute decompensated CHF, query systolic; NYHA Functional class III -CHF stage C; anasarca-->resolved -LVEF 2014 WNL, it was a technically difficult study; 2D echo LVEF-->WNL; DHF. 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 -likely multifactorial; vascular and DM component Obesity, BMI 39.3-->weight loss >30 pounds. 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 Worthy Cath 48 hours for strict I&O--DC; DC--lasix gtt-->start Lasix 60 mg BID Ischemic and Infectious evaluation unremarkable Home meds Daily labs ADA/heart healthy diet PT/OT--he is ambulating better now for assist with DC planning- likely recommend SNF placement; LOS 1-3 more days pending further diuresis Patient is DNR/DNI code status PCP is Dr. Christina Sin with [facility] LOS>96 hours with gradual treatment response and placement in SNF.
[2017-06-10] MEDS: Furosemide 40 MG Tab PO SCH (17:13)
[2017-06-10] MEDS: Magnesium Oxide 400 MG Tab PO SCH (21:50)
[2017-06-10] MEDS: Pramipexole 0.25 MG Tab PO SCH (21:51)
[2017-06-11] MEDS: Furosemide 40 MG Tab PO SCH ×2 (06:23→14:48)
--- NOTE | 2017-06-11 08:21 | PCM.PN ---
- General Info Date of Service: 06/11/17 Admission Dx/Problem (Free Text): Admission Diagnosis/Problem Admission Diagnosis/Problem Edema Subjective Update: Follow up Functional Status: Reports: Pain Controlled, Tolerating Diet, Urinating. Denies : New Symptoms - Review of Systems General: Denies: Fever, Weakness, Fatigue, Malaise, Chills HEENT: Reports: No Symptoms Pulmonary: Denies: Shortness of Breath Cardiovascular: Denies: Palpitations, Dyspnea on Exertion, Edema, Lightheadedness Gastrointestinal: Denies: Abdominal Pain, Nausea, Vomiting Genitourinary: Reports: No Symptoms Musculoskeletal: Reports: No Symptoms Skin: Reports: No Symptoms Neurological: Reports: Gait Disturbance. Denies: Confusion, Difficulty Walking , Weakness Psychiatric: Denies: Depression, Anxiety, Agitation, Hallucinations Systems Review Comment:: No overnight or acute issues. He is doing relatively well. He feels pretty good. He has no new complaints. His ProBNP this morning is 1803. - Patient Data Vitals - Most Recent: Last Vital Signs Temp 36.7 C 06/11/17 04:08 Pulse 72 06/11/17 04:08 Resp 20 06/11/17 04:08 BP 130/62 06/11/17 04:08 Pulse Ox 97 06/11/17 04:08 Weight - Most Recent: 119.794 kg I&O - Last 24 Hours: Intake & Output 06/10/17 06/11/17 06/11/17 22:59 06:59 14:59 Intake Total 1070 450 Output Total 300 1050 Balance 770 -600 Lab Results Last 24 Hours: Laboratory Results - last 24 hr 06/10/17 06/10/17 06/10/17 Range/Units 10:33 17:57 21:44 WBC (4.23-9.07) K/mm3 RBC (4.63-6.08) M/mm3 Hgb (13.7-17.5) gm/L Hct (40.1-51.0) % MCV (79.0-92.2) fl MCH (25.7-32.2) pg MCHC (32.2-35.5) g/dl RDW Std Deviation (35.1-43.9) fL Plt Count (163-337) K/mm3 MPV (9.4-12.3) fl Neut % (Auto) (34.0-67.9) % Lymph % (Auto) (21.8-53.1) % [place] % (Auto) (5.3-12.2) % Eos % (Auto) (0.8-7.0) Baso % (Auto) (0.1-1.2) % Neut # (Auto) (1.78-5.38) K/mm3 Lymph # (Auto) (1.32-3.57) K/mm3 [place] # (Auto) (0.30-0.82) K/mm3 Eos # (Auto) (0.04-0.54) K/mm3 Baso # (Auto) (0.01-0.08) K/mm3 Sodium (136-145) mEq/L Potassium (3.5-5.1) mEq/L Chloride (98-107) mEq/L Carbon Dioxide (21-32) mEq/L Anion Gap (5-15) BUN (7-18) mg/dL Creatinine (0.7-1.3) mg/dL Est Cr Clr Drug Dosing mL/min Estimated GFR (MDRD) (>60) mL/min BUN/Creatinine Ratio (14-18) Glucose (83-115) mg/dL POC Glucose 123 H 125 H 145 H (83-110) mg/dL Calcium (8.5-10.1) mg/dL Magnesium (1.8-2.4) mg/dl C-Reactive Protein (<1.0) mg/dL NT-Pro-B Natriuret Pep (0-450) pg/mL 06/11/17 06/11/17 06/11/17 Range/Units 06:00 06:00 06:00 WBC 4.15 L (4.23-9.07) K/mm3 RBC 3.29 L (4.63-6.08) M/mm3 Hgb 10.1 L (13.7-17.5) gm/L Hct 32.6 L (40.1-51.0) % MCV 99.1 H (79.0-92.2) fl MCH 30.7 (25.7-32.2) pg MCHC 31.0 L (32.2-35.5) g/dl RDW Std Deviation 55.0 H (35.1-43.9) fL Plt Count 197 (163-337) K/mm3 MPV 9.9 (9.4-12.3) fl Neut % (Auto) 70.0 H (34.0-67.9) % Lymph % (Auto) 21.0 L (21.8-53.1) % [place] % (Auto) 6.3 (5.3-12.2) % Eos % (Auto) 2.7 (0.8-7.0) Baso % (Auto) 0.0 L (0.1-1.2) % Neut # (Auto) 2.91 (1.78-5.38) K/mm3 Lymph # (Auto) 0.87 L (1.32-3.57) K/mm3 [place] # (Auto) 0.26 L (0.30-0.82) K/mm3 Eos # (Auto) 0.11 (0.04-0.54) K/mm3 Baso # (Auto) 0.00 L (0.01-0.08) K/mm3 Sodium 141 (136-145) mEq/L Potassium 4.6 (3.5-5.1) mEq/L Chloride 106 (98-107) mEq/L Carbon Dioxide 28 (21-32) mEq/L Anion Gap 11.6 (5-15) BUN 49 H (7-18) mg/dL Creatinine 1.5 H (0.7-1.3) mg/dL Est Cr Clr Drug Dosing 43.26 mL/min Estimated GFR (MDRD) 46 (>60) mL/min BUN/Creatinine Ratio 32.7 H (14-18) Glucose 93 (83-115) mg/dL POC Glucose (83-110) mg/dL Calcium 8.6 (8.5-10.1) mg/dL Magnesium 2.1 (1.8-2.4) mg/dl C-Reactive Protein 3.1 H* (<1.0) mg/dL NT-Pro-B Natriuret Pep 1803 H (0-450) pg/mL 06/11/17 Range/Units 06:21 WBC (4.23-9.07) K/mm3 RBC (4.63-6.08) M/mm3 Hgb (13.7-17.5) gm/L Hct (40.1-51.0) % MCV (79.0-92.2) fl MCH (25.7-32.2) pg MCHC (32.2-35.5) g/dl RDW Std Deviation (35.1-43.9) fL Plt Count (163-337) K/mm3 MPV (9.4-12.3) fl Neut % (Auto) (34.0-67.9) % Lymph % (Auto) (21.8-53.1) % [place] % (Auto) (5.3-12.2) % Eos % (Auto) (0.8-7.0) Baso % (Auto) (0.1-1.2) % Neut # (Auto) (1.78-5.38) K/mm3 Lymph # (Auto) (1.32-3.57) K/mm3 [place] # (Auto) (0.30-0.82) K/mm3 Eos # (Auto) (0.04-0.54) K/mm3 Baso # (Auto) (0.01-0.08) K/mm3 Sodium (136-145) mEq/L Potassium (3.5-5.1) mEq/L Chloride (98-107) mEq/L Carbon Dioxide (21-32) mEq/L Anion Gap (5-15) BUN (7-18) mg/dL Creatinine (0.7-1.3) mg/dL Est Cr Clr Drug Dosing mL/min Estimated GFR (MDRD) (>60) mL/min BUN/Creatinine Ratio (14-18) Glucose (83-115) mg/dL POC Glucose 98 (83-110) mg/dL Calcium (8.5-10.1) mg/dL Magnesium (1.8-2.4) mg/dl C-Reactive Protein (<1.0) mg/dL NT-Pro-B Natriuret Pep (0-450) pg/mL Med Orders - Current: Current Medications Acetaminophen (Tylenol) 650 mg PO Q6H PRN PRN Reason: Pain Last Admin: 06/10/17 21:52 Dose: 650 mg Albuterol/Ipratropium (Duoneb 3.0-0.5 Mg/3 Ml) 3 ml NEB QID PRN PRN Reason: Shortness of Breath Allopurinol (Zyloprim) 300 mg PO DAILY [facility] Last Admin: 06/10/17 09:28 Dose: 300 mg Apixaban (Eliquis) 2.5 mg PO BID [facility] Last Admin: 06/10/17 21:50 Dose: 2.5 mg Capsaicin (Zostrix 0.025% Crm) 0 gm TOP BID PRN PRN Reason: Pain Last Admin: 06/10/17 01:50 Dose: 1 applic Cyclobenzaprine HCl (Flexeril) 5 - 10 mg PO TID PRN PRN Reason: Spasms Last Admin: 06/10/17 21:54 Dose: 10 mg Diltiazem HCl (Dilacor Xr) 240 mg PO DAILY [facility] Last Admin: 06/10/17 09:28 Dose: 240 mg Furosemide (Lasix) 60 mg PO BIDDIURETIC [facility] Last Admin: 06/11/17 06:23 Dose: 60 mg Insulin Detemir (Levemir) 4 unit SUBCUT DAILY [facility] Last Admin: 06/10/17 09:30 Dose: 4 units Magnesium Hydroxide (Milk Of Magnesia) 30 ml PO BID PRN PRN Reason: Constipation Magnesium Oxide (Magnesium Oxide) 400 mg PO DAILY@2100 [facility] Last Admin: 06/10/17 21:50 Dose: 400 mg Metoprolol Tartrate (Lopressor) 5 mg IVPUSH Q6H PRN PRN Reason: HR>120 Atorvastatin Calcium (20 Mg) 0 each PO DAILY [facility] Last Admin: 06/10/17 09:29 Dose: 1 each Roflumilast 500 Mcg ((Daliresp)) 0 each PO DAILY [facility] Last Admin: 06/10/17 09:29 Dose: 1 each Brovana ( Arformoterol) Med Neb 15 Mcg 0 each INH BID [facility] Last Admin: 06/10/17 20:53 Dose: 1 each Melatonin 5 Mg (Tablet) 0 each PO BEDTIME PRN PRN Reason: Insomnia Last Admin: 06/10/17 21:55 Dose: 10 each Pramipexole Dihydrochloride (Mirapex) 0.125 mg PO DAILY@2000 [facility] Last Admin: 06/10/17 21:51 Dose: 0.125 mg Senna/Docusate Sodium (Senna Plus) 1 tab PO BID [facility] Last Admin: 06/10/17 21:51 Dose: 1 tab Sodium Chloride (Saline Flush) 10 ml FLUSH ASDIRECTED PRN PRN Reason: Keep Vein Open Last Admin: 06/07/17 01:52 Dose: 10 ml Tamsulosin HCl (Flomax) 0.8 mg PO PCBREAKFAST [facility] Last Admin: 06/10/17 09:28 Dose: 0.8 mg Tiotropium [place] (Spiriva Handihaler) 18 mcg INH DAILY [facility] Last Admin: 06/10/17 09:58 Dose: 1 cap Discontinued Medications Furosemide (Lasix) 80 mg IVPUSH NOW ONE Stop: 06/07/17 01:45 Last Admin: 06/07/17 01:51 Dose: 80 mg Furosemide (Lasix) 80 mg IVPUSH NOW ONE Stop: 06/07/17 10:01 Last Admin: 06/07/17 09:46 Dose: 80 mg Hydromorphone HCl (Dilaudid) 0.5 mg IVPUSH ONETIME ONE Stop: 06/07/17 03:26 Last Admin: 06/07/17 03:29 Dose: 0.5 mg Furosemide 100 mg/ Sodium (Chloride) 100 mls @ 4 mls/hr IV ASDIRECTED [facility]; Protocol Stop: 06/10/17 14:30 Last Admin: 06/09/17 14:00 Dose: 4 mls/hr Insulin Detemir (Levemir) 4 unit SUBCUT DAILY [facility] Last Admin: 06/08/17 11:25 Dose: Not Given Insulin Detemir (Levemir) 6 unit SUBCUT DAILY [facility] Insulin Detemir (Levemir) 6 unit SUBCUT DAILY [facility] Insulin Detemir (Levemir) 4 unit SUBCUT DAILY [facility] Brovana ( Arformoterol) Med Neb 15 Mcg 0 puff INH BID [facility] Last Admin: 06/07/17 21:06 Dose: 1 puff Tamsulosin HCl (Flomax) 0.4 mg PO ONETIME ONE Stop: 06/08/17 14:01 Last Admin: 06/08/17 14:37 Dose: 0.4 mg - Exam General: Alert, Oriented, Cooperative, No Acute Distress HEENT: Pupils Equal, Pupils Reactive, EOMI, Mucous Membr. Moist/[place], Other ( Obese) Neck: Supple, Trachea Midline, No JVD, No Thyromegaly Lungs: Clear to Auscultation, Normal Respiratory Effort Cardiovascular: Regular Rhythm GI/Abdominal Exam: Normal Bowel Sounds, Soft, Non-Tender, No Organomegaly, No Distention, No Abnormal Bruit, No Mass, Other (Obese) (Male) Exam: No: Scrotal Swelling Back Exam: Normal Inspection, Decreased Range of Motion Extremities: Normal Inspection, Non-Tender, No Pedal Edema, Normal Capillary Refill Peripheral Pulses: 1+: Dorsalis Pedis (L), Dorsalis Pedis (R) Skin: Warm, Dry, Intact, Other (hyperpigmentation/skin discoloration/fibrotic changes on bilateral lower extremity) Neurological: No New Focal Deficit Psy/Mental Status: Alert, Normal Affect, Normal Mood - Problem List Review Problem List Initiated/Reviewed/Updated: Yes - Plan Plan:: Assessment/Plan: Acute: Decompensated CHF, query systolic; NYHA Functional class III, Improved Significantly - CHF stage C; anasarca--> resolved; thyroid panel normal; will check for urine microalbumin studies - LVEF 2014 WNL, it was a technically difficult study; 2D echo LVEF-->WNL; DHF; repeat 2D echo pending result - Diurese with Lasix gtt--working well as is down 20lbs; now on 60 mg po BID - Electrolytes stable Venous Disease--> fibrotic skin changes cannot r/o Insufficiency - Likely multifactorial; vascular and DM component - [employer] in AM Obesity, BMI 39.3 - Weight loss >30 pounds. 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 Diabetes Mellitus Type 2, Controlled - Stable; home regimen - A1C 6.2 - Accu-checks AC/HS with SSI coverage Atrial Fibrillation on Eliquis, renal dose - HR controlled, no calls on telemetry - Continue rate control medications Chronic: HTN-stable HLD COPD CKD Stage 4 Former tobacco use Plan: He remains clinically stable Continue current treatment Strep pneumoniae Ag, Mycoplasma pneumoniae Ag and Influenza screening-all negative Routine Daily labs ADA/heart healthy diet Discontinue SCDs Discontinue PT/OT--he is ambulating now Additional orders as above CM for assist with DC planning- likely recommend SNF placement; LOS 1-3 more days pending further diuresis Patient is DNR/DNI code status PCP is Dr. Christina Sin with [facility] LOS >96 hours with gradual treatment response and placement in SNF.
[2017-06-11] MEDS: ARFORMOTEROL INH SCH ×2 (08:56→20:26)
[2017-06-11] MEDS: Tiotropium Inhaler 18 MCG Inhalation Powder Cap Kit of 5 INH SCH (08:57)
[2017-06-11] MEDS: Diltiazem 240 MG Cap.ER PO SCH (09:34)
[2017-06-11] MEDS: Apixaban 5 MG Tab PO SCH ×2 (09:34→20:14)
[2017-06-11] MEDS: Insulin Detemir 100 Units/ML 3 ML Pen SUBCUT SCH (09:35)
[2017-06-11] MEDS: ATORVASTATIN CALCIUM 20 MG PO SCH (09:37)
[2017-06-11] MEDS: Allopurinol 300 MG Tab PO SCH (09:38)
[2017-06-11] MEDS: Tamsulosin 0.4 MG Cap.ER PO SCH (09:38)
[2017-06-11] MEDS: Acetaminophen 325 MG Tab PO PRN (20:14)
[2017-06-11] MEDS: Pramipexole 0.25 MG Tab PO SCH (20:15)
[2017-06-11] MEDS: Cyclobenzaprine 10 MG Tab PO PRN (20:16)
[2017-06-11] MEDS: Magnesium Oxide 400 MG Tab PO SCH (20:16)
[2017-06-11] MEDS: CAPSAICIN 0.025% TOP PRN (21:01)
[2017-06-12] MEDS ORDERED: Temazepam 15 MG Cap PO ONE (02:02)
[2017-06-12] MEDS: Acetaminophen 325 MG Tab PO PRN (02:11)
[2017-06-12] MEDS: Furosemide 40 MG Tab PO SCH ×2 (05:14→12:46)
--- NOTE | 2017-06-12 08:03 | PCM.PN ---
- General Info Date of Service: 06/12/17 Admission Dx/Problem (Free Text): Admission Diagnosis/Problem Admission Diagnosis/Problem Edema - Patient Data Vitals - Most Recent: Last Vital Signs Temp 97.9 F 06/12/17 02:14 Pulse 68 06/12/17 02:14 Resp 20 06/12/17 02:14 BP 122/59 L 06/12/17 02:14 Pulse Ox 93 L 06/12/17 02:14 Weight - Most Recent: 266 lb 11.2 oz I&O - Last 24 Hours: Intake & Output 06/11/17 06/12/17 06/12/17 22:59 06:59 14:59 Intake Total 1070 800 Balance 1070 800 Lab Results Last 24 Hours: Laboratory Results - last 24 hr 06/11/17 06/11/17 06/11/17 Range/Units 06:00 06:00 12:23 POC Glucose 121 H (83-110) mg/dL Hemoglobin A1c 6.20 (4.50-6.20) % Free T4 1.11 (0.76-1.46) ng/dL TSH 3rd Generation 2.912 (0.358-3.74) uIU/mL Ur Random Creatinine (30.0-125.0) mg/dL Ur Random Microalbumin (1.3-20.0) mg/L Microalb/Creat Ratio (0-30) mg/g 06/11/17 06/11/17 06/11/17 Range/Units 16:15 16:55 20:58 POC Glucose 151 H 165 H (83-110) mg/dL Hemoglobin A1c (4.50-6.20) % Free T4 (0.76-1.46) ng/dL TSH 3rd Generation (0.358-3.74) uIU/mL Ur Random Creatinine 61.2 (30.0-125.0) mg/dL Ur Random Microalbumin 11.9 (1.3-20.0) mg/L Microalb/Creat Ratio 19.4 (0-30) mg/g 06/12/17 Range/Units 06:39 POC Glucose 103 (83-110) mg/dL Hemoglobin A1c (4.50-6.20) % Free T4 (0.76-1.46) ng/dL TSH 3rd Generation (0.358-3.74) uIU/mL Ur Random Creatinine (30.0-125.0) mg/dL Ur Random Microalbumin (1.3-20.0) mg/L Microalb/Creat Ratio (0-30) mg/g Med Orders - Current: Current Medications Acetaminophen (Tylenol) 650 mg PO Q6H PRN PRN Reason: Pain Last Admin: 06/12/17 02:11 Dose: 650 mg Albuterol/Ipratropium (Duoneb 3.0-0.5 Mg/3 Ml) 3 ml NEB QID PRN PRN Reason: Shortness of Breath Last Admin: 06/11/17 14:04 Dose: 3 ml Allopurinol (Zyloprim) 300 mg PO DAILY [facility] Last Admin: 06/11/17 09:38 Dose: 300 mg Apixaban (Eliquis) 2.5 mg PO BID [facility] Last Admin: 06/11/17 20:14 Dose: 2.5 mg Capsaicin (Zostrix 0.025% Crm) 0 gm TOP BID PRN PRN Reason: Pain Last Admin: 06/11/17 21:01 Dose: 1 applic Cyclobenzaprine HCl (Flexeril) 5 - 10 mg PO TID PRN PRN Reason: Spasms Last Admin: 06/11/17 20:16 Dose: 10 mg Diltiazem HCl (Dilacor Xr) 240 mg PO DAILY [facility] Last Admin: 06/11/17 09:34 Dose: 240 mg Furosemide (Lasix) 60 mg PO BIDDIURETIC [facility] Last Admin: 06/12/17 05:14 Dose: 60 mg Insulin Detemir (Levemir) 4 unit SUBCUT DAILY [facility] Last Admin: 06/11/17 09:35 Dose: 4 units Magnesium Hydroxide (Milk Of Magnesia) 30 ml PO BID PRN PRN Reason: Constipation Magnesium Oxide (Magnesium Oxide) 400 mg PO DAILY@2100 [facility] Last Admin: 06/11/17 20:16 Dose: 400 mg Metoprolol Tartrate (Lopressor) 5 mg IVPUSH Q6H PRN PRN Reason: HR>120 Atorvastatin Calcium (20 Mg) 0 each PO DAILY [facility] Last Admin: 06/11/17 09:37 Dose: 1 each Roflumilast 500 Mcg ((Daliresp)) 0 each PO DAILY [facility] Last Admin: 06/11/17 09:37 Dose: 1 each Brovana ( Arformoterol) Med Neb 15 Mcg 0 each INH BID [facility] Last Admin: 06/11/17 20:26 Dose: 1 each Melatonin 5 Mg (Tablet) 0 each PO BEDTIME PRN PRN Reason: Insomnia Last Admin: 06/11/17 20:17 Dose: 2 each Pramipexole Dihydrochloride (Mirapex) 0.125 mg PO DAILY@1999 [facility] Last Admin: 06/11/17 20:15 Dose: 0.125 mg Senna/Docusate Sodium (Senna Plus) 1 tab PO BID [facility] Last Admin: 06/11/17 20:16 Dose: Not Given Sodium Chloride (Saline Flush) 10 ml FLUSH ASDIRECTED PRN PRN Reason: Keep Vein Open Last Admin: 06/07/17 01:52 Dose: 10 ml Tamsulosin HCl (Flomax) 0.8 mg PO PCBREAKFAST [facility] Last Admin: 06/11/17 09:38 Dose: 0.8 mg Tiotropium [place] (Spiriva Handihaler) 18 mcg INH DAILY [facility] Last Admin: 06/11/17 08:57 Dose: 1 cap Discontinued Medications Furosemide (Lasix) 80 mg IVPUSH NOW ONE Stop: 06/07/17 01:45 Last Admin: 06/07/17 01:51 Dose: 80 mg Furosemide (Lasix) 80 mg IVPUSH NOW ONE Stop: 06/07/17 10:01 Last Admin: 06/07/17 09:46 Dose: 80 mg Hydromorphone HCl (Dilaudid) 0.5 mg IVPUSH ONETIME ONE Stop: 06/07/17 03:26 Last Admin: 06/07/17 03:29 Dose: 0.5 mg Furosemide 100 mg/ Sodium (Chloride) 100 mls @ 4 mls/hr IV ASDIRECTED [facility]; Protocol Stop: 06/10/17 14:30 Last Admin: 06/09/17 14:00 Dose: 4 mls/hr Insulin Detemir (Levemir) 4 unit SUBCUT DAILY [facility] Last Admin: 06/08/17 11:25 Dose: Not Given Insulin Detemir (Levemir) 6 unit SUBCUT DAILY [facility] Insulin Detemir (Levemir) 6 unit SUBCUT DAILY [facility] Insulin Detemir (Levemir) 4 unit SUBCUT DAILY [facility] Brovana ( Arformoterol) Med Neb 15 Mcg 0 puff INH BID [facility] Last Admin: 06/07/17 21:06 Dose: 1 puff Tamsulosin HCl (Flomax) 0.4 mg PO ONETIME ONE Stop: 06/08/17 14:01 Last Admin: 06/08/17 14:37 Dose: 0.4 mg Temazepam (Restoril) 15 mg PO ONETIME ONE Stop: 06/12/17 02:03 Last Admin: 06/12/17 02:12 Dose: 15 mg - Problem List & Annotations (1) Atrial fibrillation SNOMED Code(s): 28662518 Code(s): I48.91 - UNSPECIFIED ATRIAL FIBRILLATION Status: Chronic Priority: High Current Visit: Yes Qualifiers: Atrial fibrillation type: chronic Qualified Code(s): I48.2 - Chronic atrial fibrillation (2) Congestive heart failure (CHF) SNOMED Code(s): 67434367 Code(s): I50.9 - HEART FAILURE, UNSPECIFIED Status: Chronic Priority: High Current Visit: Yes Qualifiers: Heart failure type: right-sided Heart failure chronicity: acute on chronic Qualified Code(s): I50.813 - Acute on chronic right heart failure (3) Obesity (BMI 30-39.9) SNOMED Code(s): 268495600, 184768738 Code(s): E66.9 - OBESITY, UNSPECIFIED Status: Chronic Priority: Medium Current Visit: Yes (4) Weakness generalized SNOMED Code(s): 05592740 Code(s): R53.1 - WEAKNESS Status: Acute Current Visit: Yes (5) Difficulty walking SNOMED Code(s): 147059597 Code(s): R26.2 - DIFFICULTY IN WALKING, NOT ELSEWHERE CLASSIFIED Status: Chronic Priority: High Current Visit: Yes - Problem List Review Problem List Initiated/Reviewed/Updated: Yes - Plan Plan:: Assessment/Plan: Acute: Decompensated CHF, query systolic; NYHA Functional class III, Improved Significantly - CHF stage C - anasarca--> resolved - thyroid panel normal - will check for urine microalbumin studies - WNL - LVEF 2014 WNL, it was a technically difficult study; 2D echo LVEF-->WNL; DHF; - Repeat 2D echo 06/08/17 -LVEF 55-60% -Impaired relaxation (Grade1) pattern of LV diastolic filling -Moderate aortic valve sclerosis without stenosis -Severe mitral annular calcification -Trace mitral valve regurgitation -Mild trace tricuspid valve regurgitation -Right ventricular systolic pressure is mildy elevated at 36.0 mmHg - Diurese with Lasix gtt--working well as is down 20lbs; now on 60 mg po BID - Electrolytes stable Venous Disease--> fibrotic skin changes cannot r/o Insufficiency - Likely multifactorial; vascular and DM component - PADnet in AM Obesity, BMI 39.3 - Weight loss >30 pounds. 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 Diabetes Mellitus Type 2, Controlled - Stable; home regimen - A1C 6.2 - Accu-checks AC/HS with SSI coverage Atrial Fibrillation on Eliquis, renal dose - HR controlled, no calls on telemetry - Continue rate control medications Chronic: HTN-stable HLD COPD CKD Stage 4 Former tobacco use Plan: He remains clinically stable Continue current treatment Strep pneumoniae Ag, Mycoplasma pneumoniae Ag and Influenza screening-all negative Routine Daily labs ADA/heart healthy diet Discontinue SCDs Discontinue PT/OT--he is ambulating now Additional orders as above CM for assist with DC planning- likely recommend SNF placement; LOS 1-3 more days pending further diuresis Patient is DNR/DNI code status PCP is Dr. Christina Sin with [facility] LOS >96 hours with gradual treatment response and placement in SNF.
[2017-06-12 08:19] VITALS: BP 116/83
[2017-06-12] MEDS: ARFORMOTEROL INH SCH (08:28)
[2017-06-12] MEDS: Tiotropium Inhaler 18 MCG Inhalation Powder Cap Kit of 5 INH SCH (08:28)
[2017-06-12] MEDS: Apixaban 5 MG Tab PO SCH (09:35)
[2017-06-12] MEDS: Allopurinol 300 MG Tab PO SCH (09:35)
[2017-06-12] MEDS: Diltiazem 240 MG Cap.ER PO SCH (09:35)
[2017-06-12] MEDS: Tamsulosin 0.4 MG Cap.ER PO SCH (09:36)
[2017-06-12] MEDS: Insulin Detemir 100 Units/ML 3 ML Pen SUBCUT SCH (09:36)
[2017-06-12] MEDS: ATORVASTATIN CALCIUM 20 MG PO SCH (09:38)
--- NOTE | 2017-06-12 11:28 | PCM.DCSUM1 ---
Discharge Summary - Hospital Course HPI Initial Comments: 76 year old male who resides at home, reports progressive SOB. It had been occurring with activity but recently over 2-3 days has happened at rest. He reports a 30 # weight gain over 5-6 months. The patient admits to profound leg edema which has associated scrotal swell. The scrotal swelling has recently happened over several days. He denies any chest pain, orthopnea, PND, syncopal , presyncopal episodes. There has been no recent illness or change in medication. He has had not episodes of palpitations or lightheadedness. - Discharge Data Discharge Date: 06/12/17 (Admit date: 06/07/17) Discharge Disposition: DC/Tfer to SNF 03 Condition: Good - Discharge Diagnosis/Problem(s) (1) Atrial fibrillation SNOMED Code(s): 38674915 ICD Code: I48.91 - UNSPECIFIED ATRIAL FIBRILLATION Status: Chronic Priority: High Current Visit: Yes Qualifiers: Atrial fibrillation type: chronic Qualified Code(s): I48.2 - Chronic atrial fibrillation (2) Congestive heart failure (CHF) SNOMED Code(s): 69680671 ICD Code: I50.9 - HEART FAILURE, UNSPECIFIED Status: Chronic Priority: High Current Visit: Yes Qualifiers: Heart failure type: right-sided Heart failure chronicity: acute on chronic Qualified Code(s): I50.813 - Acute on chronic right heart failure (3) Obesity (BMI 30-39.9) SNOMED Code(s): 571848102, 955893533 ICD Code: E66.9 - OBESITY, UNSPECIFIED Status: Chronic Priority: Medium Current Visit: Yes (4) Weakness generalized SNOMED Code(s): 72138970 ICD Code: R53.1 - WEAKNESS Status: Acute Current Visit: Yes (5) Difficulty walking SNOMED Code(s): 652080164 ICD Code: R26.2 - DIFFICULTY IN WALKING, NOT ELSEWHERE CLASSIFIED Status: Chronic Priority: High Current Visit: Yes - Patient Summary/Data Consults: Consultations 06/07/17 04:49 Consult to Physical Therapy [PT Evaluation and Treatment] [CONS] Routine 06/07/17 04:50 Consult to Occupational Therapy [OT Evaluation and Treatment] [CONS] Routine 06/07/17 13:50 Consult to Quantitative Consultant [CONS] Routine 06/09/17 03:36 Consult to Dietary [Consult to Compositor Apprentice] [CONS] Routine Labs Pending at D/C: PADnet testing obtained and results pending Recommended Follow-up Testing/Procedures: Follow Hospital Course: Assessment/Plan: Acute: Decompensated CHF, query systolic; NYHA Functional class III, Improved Significantly - CHF stage C - Anasarca--> resolved - Thyroid panel normal - Check urine microalbumin studies -> WNL - LVEF 2014 WNL, it was a technically difficult study; 2D echo LVEF-->WNL; DHF; - Eepeat 2D echo (06/08/17) -LVEF 55-60% by visual estimation -Impaired relaxation (Grade 1) pattern of LV diastolic filling -Moderate aortic valve sclerosis without stenosis -Severe mitral annular calcification -Trace mitral valve regurgitation -Mild tricuspid valve regurgitation -Right ventricular systolic pressure is mildly elevated at 36.0 mmHg - Diurese with Lasix gtt--working well as is down 20lbs; now on 60 mg po BID - Electrolytes stable Venous Disease--> fibrotic skin changes cannot r/o Insufficiency - Likely multifactorial; vascular and DM component - PADnet in AM - obtained and results pending Obesity, BMI 39.3 - Weight loss >30 pounds. 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 Diabetes Mellitus Type 2, Controlled - Stable; home regimen - A1C 6.2 - Accu-checks AC/HS with SSI coverage Atrial Fibrillation on Eliquis, renal dose - HR controlled, no calls on telemetry - Continue rate control medications Chronic: HTN-stable HLD COPD CKD Stage 4 Former tobacco use Plan: He remains clinically stable Continue current treatment Strep pneumoniae Ag, Mycoplasma pneumoniae Ag and Influenza screening-all negative Routine Daily labs ADA/heart healthy diet Discontinue SCDs Discontinue PT/OT--he is ambulating now Additional orders as above CM for assist with DC planning- likely recommend SNF placement; LOS 1-3 more days pending further diuresis Patient is DNR/DNI code status PCP is Dr. Christina Sin with [facility] LOS >96 hours with gradual treatment response and placement in SNF. Overall Latrell did quite well. He lost over 30 lbs of weight while in our care. Echo was obtained and is noted above. He received a PADnet test today and results are still pending. He has been ambulating well. He did see a shank breaker while in our care and they had a good talk. He will be discharged today to [facility] for continued care. His dosage of lasix was changed and he did very well here while on 60mg BID. He was instructed to take a second dose if he notes increased SOB or edema. He has an appointment with Dr. Sin at the end of the week and should follow-up with her as planned. - Patient Instructions Diet: Low Sodium, Diabetic Diet Fluid Restriction: 2000 mL Activity: As Tolerated Driving: Do Not Drive Showering/Bathing: May Shower Notify Provider of: Fever, Increased Pain, Nausea and/or Vomiting - Discharge Plan Prescriptions/Med Rec: Furosemide [Lasix] 60 mg PO BIDDIURETIC #40 tablet Home Medications: Home Meds Allopurinol [Zyloprim] 300 mg PO DAILY 06/07/17 [History] Apixaban [Eliquis] 2.5 mg PO BID 06/07/17 [History] Arformoterol [Brovana] 1 puff NEB BID 06/07/17 [History] Diltiazem HCl [Diltiazem 24Hr ER] 240 mg PO DAILY 06/07/17 [History] Furosemide [Lasix] 40 mg PO BEDTIME 06/07/17 [History] Lisinopril 2.5 mg PO DAILY 06/07/17 [History] Roflumilast [Daliresp] 500 mcg PO DAILY 06/07/17 [History] Tiotropium [Spiriva HandiHaler] 18 mcg INH DAILY 06/07/17 [History] acetaZOLAMIDE [Acetazolamide] 500 mg PO ASDIRECTED 06/07/17 [History] atorvaSTATin Calcium [Atorvastatin Calcium] 20 mg PO DAILY 06/07/17 [History] Insulin Glargine,Hum.Rec.Anlog [Lantus Solostar] 4 unit SQ DAILY 06/08/17 [ History] Nitroglycerin [Nitrostat] 0.4 mg SL PRN 06/08/17 [History] Pramipexole Di-HCl [Mirapex] 0.125 mg PO 199906/08/17 [History] Capsaicin [Zostrix 0.025% Crm] 60 gm TP BID PRN 06/09/17 [History] Melatonin/Pyridoxine HCl (B6) [Melatonin 5 mg Tablet] 10 mg PO BEDTIME PRN 06/09 [History] Cyclobenzaprine [Flexeril] 5 - 10 mg PO TID PRN tablet 06/12/17 [Rx] Furosemide [Lasix] 60 mg PO BIDDIURETIC #40 tablet 06/12/17 [Rx] Patient Handouts: Heart Failure, [id number] Referrals: Christina Sin MD [Primary Care Provider] - (Please call and schedule a post-hospital follow-up appointment with your primary care doctor in 7 to 10 days. ) - Discharge Summary/Plan Comment DC Time >30 min.: Yes (45 mins ) - General Info Date of Service: 06/12/17 Admission Dx/Problem (Free Text: Edema Subjective Update: In to see Latrell today. He is sitting on the edge of the bed eating. He has no acute complaints but does state his left leg has had some occasional pain which has been ongoing for some time. He had a PADnet obtained today and results are pending. Labs have looked good through the weekend. No concerns from patient or nursing. He will be discharged to [facility] today. Functional Status: Reports: Pain Controlled, Tolerating Diet, Ambulating, Urinating. Denies: New Symptoms - Review of Systems General: Reports: No Symptoms HEENT: Reports: No Symptoms Pulmonary: Reports: No Symptoms. Denies: Shortness of Breath, Cough, Sputum, Wheezing Cardiovascular: Reports: No Symptoms. Denies: Chest Pain Gastrointestinal: Reports: No Symptoms. Denies: Abdominal Pain, Constipation, Diarrhea, Nausea, Vomiting Genitourinary: Reports: No Symptoms Musculoskeletal: Reports: Leg Pain (left leg cramp which comes and goes - baseline ) Skin: Reports: No Symptoms Neurological: Reports: No Symptoms Psychiatric: Reports: No Symptoms - Patient Data Vitals - Most Recent: Last Vital Signs Temp 97.3 F 06/12/17 07:42 Pulse 66 06/12/17 07:42 Resp 19 06/12/17 07:42 BP 116/83 06/12/17 07:42 Pulse Ox 95 06/12/17 08:30 Weight - Most Recent: 266 lb 11.2 oz I&O - Last 24 hours: Intake & Output 06/11/17 06/12/17 06/12/17 22:59 06:59 14:59 Intake Total 1070 800 120 Balance 1070 800 120 Lab Results - Last 24 hrs: Laboratory Results - last 24 hr 06/11/17 06/11/17 06/11/17 Range/Units 12:23 16:15 16:55 POC Glucose 121 H 151 H (83-110) mg/dL Ur Random Creatinine 61.2 (30.0-125.0) mg/dL Ur Random Microalbumin 11.9 (1.3-20.0) mg/L Microalb/Creat Ratio 19.4 (0-30) mg/g 06/11/17 06/12/17 06/12/17 Range/Units 20:58 06:39 11:05 POC Glucose 165 H 103 128 H (83-110) mg/dL Ur Random Creatinine (30.0-125.0) mg/dL Ur Random Microalbumin (1.3-20.0) mg/L Microalb/Creat Ratio (0-30) mg/g Med Orders - Current: Current Medications Acetaminophen (Tylenol) 650 mg PO Q6H PRN PRN Reason: Pain Last Admin: 06/12/17 02:11 Dose: 650 mg Albuterol/Ipratropium (Duoneb 3.0-0.5 Mg/3 Ml) 3 ml NEB QID PRN PRN Reason: Shortness of Breath Last Admin: 06/11/17 14:04 Dose: 3 ml Allopurinol (Zyloprim) 300 mg PO DAILY [facility] Last Admin: 06/12/17 09:35 Dose: 300 mg Apixaban (Eliquis) 2.5 mg PO BID [facility] Last Admin: 06/12/17 09:35 Dose: 2.5 mg Capsaicin (Zostrix 0.025% Crm) 0 gm TOP BID PRN PRN Reason: Pain Last Admin: 06/11/17 21:01 Dose: 1 applic Cyclobenzaprine HCl (Flexeril) 5 - 10 mg PO TID PRN PRN Reason: Spasms Last Admin: 06/11/17 20:16 Dose: 10 mg Diltiazem HCl (Dilacor Xr) 240 mg PO DAILY [facility] Last Admin: 06/12/17 09:35 Dose: 240 mg Furosemide (Lasix) 60 mg PO BIDDIURETIC [facility] Last Admin: 06/12/17 05:14 Dose: 60 mg Insulin Detemir (Levemir) 4 unit SUBCUT DAILY [facility] Last Admin: 06/12/17 09:36 Dose: 4 units Magnesium Hydroxide (Milk Of Magnesia) 30 ml PO BID PRN PRN Reason: Constipation Magnesium Oxide (Magnesium Oxide) 400 mg PO DAILY@2100 [facility] Last Admin: 06/11/17 20:16 Dose: 400 mg Metoprolol Tartrate (Lopressor) 5 mg IVPUSH Q6H PRN PRN Reason: HR>120 Atorvastatin Calcium (20 Mg) 0 each PO DAILY [facility] Last Admin: 06/12/17 09:38 Dose: 20 each Roflumilast 500 Mcg ((Daliresp)) 0 each PO DAILY [facility] Last Admin: 06/12/17 09:39 Dose: 500 each Brovana ( Arformoterol) Med Neb 15 Mcg 0 each INH BID [facility] Last Admin: 06/12/17 08:28 Dose: 1 each Melatonin 5 Mg (Tablet) 0 each PO BEDTIME PRN PRN Reason: Insomnia Last Admin: 06/11/17 20:17 Dose: 2 each Pramipexole Dihydrochloride (Mirapex) 0.125 mg PO DAILY@2000 [facility] Last Admin: 06/11/17 20:15 Dose: 0.125 mg Senna/Docusate Sodium (Senna Plus) 1 tab PO BID [facility] Last Admin: 06/12/17 09:36 Dose: 1 tab Sodium Chloride (Saline Flush) 10 ml FLUSH ASDIRECTED PRN PRN Reason: Keep Vein Open Last Admin: 06/07/17 01:52 Dose: 10 ml Tamsulosin HCl (Flomax) 0.8 mg PO PCBREAKFAST [facility] Last Admin: 06/12/17 09:36 Dose: 0.8 mg Tiotropium [place] (Spiriva Handihaler) 18 mcg INH DAILY [facility] Last Admin: 06/12/17 08:28 Dose: 1 cap Discontinued Medications Furosemide (Lasix) 80 mg IVPUSH NOW ONE Stop: 06/07/17 01:45 Last Admin: 06/07/17 01:51 Dose: 80 mg Furosemide (Lasix) 80 mg IVPUSH NOW ONE Stop: 06/07/17 10:01 Last Admin: 06/07/17 09:46 Dose: 80 mg Hydromorphone HCl (Dilaudid) 0.5 mg IVPUSH ONETIME ONE Stop: 06/07/17 03:26 Last Admin: 06/07/17 03:29 Dose: 0.5 mg Furosemide 100 mg/ Sodium (Chloride) 100 mls @ 4 mls/hr IV ASDIRECTED [facility]; Protocol Stop: 06/10/17 14:30 Last Admin: 06/09/17 14:00 Dose: 4 mls/hr Insulin Detemir (Levemir) 4 unit SUBCUT DAILY [facility] Last Admin: 06/08/17 11:25 Dose: Not Given Insulin Detemir (Levemir) 6 unit SUBCUT DAILY [facility] Insulin Detemir (Levemir) 6 unit SUBCUT DAILY [facility] Insulin Detemir (Levemir) 4 unit SUBCUT DAILY [facility] Brovana ( Arformoterol) Med Neb 15 Mcg 0 puff INH BID [facility] Last Admin: 06/07/17 21:06 Dose: 1 puff Tamsulosin HCl (Flomax) 0.4 mg PO ONETIME ONE Stop: 06/08/17 14:01 Last Admin: 06/08/17 14:37 Dose: 0.4 mg Temazepam (Restoril) 15 mg PO ONETIME ONE Stop: 06/12/17 02:03 Last Admin: 06/12/17 02:12 Dose: 15 mg - Exam Quality Assessment: Reports: DVT Prophylaxis General: Reports: Alert, Oriented, Cooperative, No Acute Distress HEENT: Reports: Pupils Equal, Pupils Reactive, EOMI, Mucous Membr. Moist/[place] Neck: Reports: Supple Lungs: Reports: Clear to Auscultation, Normal Respiratory Effort Cardiovascular: Reports: Regular Rate GI/Abdominal Exam: Normal Bowel Sounds, Soft, Non-Tender, No Organomegaly, No Distention, No Abnormal Bruit, No Mass, Pelvis Stable (Male) Exam: Deferred Rectal (Males) Exam: Deferred Back Exam: Reports: Normal Inspection, Full Range of Motion Extremities: Non-Tender, No Pedal Edema, Normal Capillary Refill, Leg Pain ( mild cramp to left leg ), Limited Range of Motion, Other (hyperpigmentation/ skin discoloration/fibrotic changes on bilateral lower extremity) Skin: Reports: Warm, Dry, Intact Neurological: Reports: No New Focal Deficit Psy/Mental Status: Reports: Alert, Normal Affect, Normal Mood
[2017-06-12] MEDS ORDERED: acetaZOLAMIDE 250 MG Tab PO SCH (12:00)
[2017-06-13] MEDS ORDERED: Lisinopril 2.5 MG Tab PO SCH (09:00)
== END 2017-06-12 13:03 | DRG 292 ==
LOC: JD.ED 01:24 → JD.MS 03:23
PROVIDERS: ADMIT Internal Medicine Cardiovascular Disease; ATTEND Internal Medicine Cardiovascular Disease
DX: I11.0 Hypertensive heart disease with heart failure (principal); R60.0 Localized edema; M79.89 Other specified soft tissue disorders; I13.0 Hypertensive heart and chronic kidney disease with heart failure and stage 1 through stage 4 chronic kidney disease, or unspecified chronic kidney disease; R06.02 Shortness of breath; N50.89 Other specified disorders of the male genital organs; N18.4 Chronic kidney disease, stage 4 (severe); I48.91 Unspecified atrial fibrillation; I50.813 Acute on chronic right heart failure; E78.00 Pure hypercholesterolemia, unspecified; F32.9 Major depressive disorder, single episode, unspecified; J44.9 Chronic obstructive pulmonary disease, unspecified; I87.2 Venous insufficiency (chronic) (peripheral); M10.9 Gout, unspecified; G47.30 Sleep apnea, unspecified; E11.22 Type 2 diabetes mellitus with diabetic chronic kidney disease; I48.2 Chronic atrial fibrillation; E66.9 Obesity, unspecified; M17.11 Unilateral primary osteoarthritis, right knee; R26.2 Difficulty in walking, not elsewhere classified; H54.7 Unspecified visual loss; R53.1 Weakness; H91.90 Unspecified hearing loss, unspecified ear; M79.605 Pain in left leg; M79.604 Pain in right leg; Z68.30 Body mass index [BMI] 30.0-30.9, adult; Z96.652 Presence of left artificial knee joint; Z79.01 Long term (current) use of anticoagulants; Z87.891 Personal history of nicotine dependence; Z79.4 Long term (current) use of insulin; Z79.899 Other long term (current) drug therapy; R53.83 Other fatigue; Z66 Do not resuscitate
CPT/HCPCS: 36415; 51702; 51798; 71045; 80053; 84484; 85025; 93005; 96374; 99285; J1940; J7050; 80048; 82043; 82962; 83036; 83735; 83880; 84439; 84443; 86140; 86738; 87804; 87899; 93306; 93923; 93970; 93970-26; 94640; 94660; 94760; 94761; 96375; 97110-GP; 97116-GP; 97162-GP; 97165-GO; 97530-GO; A9270-GY; J1170; J1815-GY; J7030